=== PATIENT | female | born 1975 | race Two or more races ===

== ENCOUNTER 2021-07-24 16:42 | Emergency (ER) | payer SELFPAY ==
[2021-07-24 17:30] VITALS: BP 137/52; PULSE 106; RESP 18; TEMP 36.7; O2SAT 99; BMI 32.0
--- NOTE | 2021-07-24 18:13 | ED_ITS ---
HPI - URI/Sore Throat General Chief Complaint: Upper Respiratory Symptoms Stated Complaint: ? sinus infection Time Seen by Provider: 07/24/21 17:55 Source: patient Mode of arrival: ambulatory Limitations: no limitations History of Present Illness HPI Narrative: This is a 46-year-old female no significant medical history presenting to the emergency department with headache, facial pressure/discomfort, malaise and fatigue x3 weeks. Patient tells me that the facial pressure so uncomfortable and causing her headache. She tells me she feels like this is her typical headache however this was not going away. She tells me that sometimes it goes away however when she becomes congested again the headache comes back. She has been using Afrin multiple times per day. She tells me this seems to help initially but then it appears to not make a difference. She denies shortness of breath, nausea, vomiting, chest pain, fevers, chills, leg swelling, dizziness, vision changes. MD elicited complaint: sinus pain Onset (ago): week(s) (3) Consistency: constant Severity: severe Able to tolerate fluids by mouth: Yes Exacerbating factors: nothing Relieving factors: nothing Associated symptoms: denies other symptoms Treatments prior to arrival: none Related Data Previous Rx's Medication Instructions Recorded amoxicillin 875 mg-potassium 1 tab PO BID 10 Days #20 tab 07/24/21 clavulanate 125 mg tablet prednisone 20 mg tablet 40 mg PO DAILY 5 Days #10 tab 07/24/21 Allergies Allergy/AdvReac Type Severity Reaction Status Date / Time No Known Allergies Allergy Unverified 07/24/21 17:30 Review of Systems Review of Systems: Constitutional : No Weight loss, No Fever, No Chills, No Fatigue, No Malaise ENT/Mouth : No sore throat, No Rhinorrhea, + sinus pressure Eyes: No Eye Pain, No Swelling, No Redness Cardiovascular : No Chest Pain, No SOB, No Dyspnea on Exertion, No Orthopnea, No Edema, No Palpitations Respiratory : No Cough, No Sputum, No Wheezing Gastrointestinal : No Nausea, No Vomiting, No Diarrhea, No Constipation, No abdominal Pain, No Hematochezia, No Melena Genitourinary : No Dysuria, No Urinary Frequency, No Hematuria, Musculoskeletal : No joint pain, No Myalgias, No Joint Swelling Skin : No Skin Lesions, No rash Neuro : No Weakness, No Numbness, No Dizziness, + Headache Psych : No Anxiety/Panic, No Depression All other systems reviewed and are negative Yes all other systems are reviewed and are negative [facility] Past Medical History Attestation statement: The following information was validated with the patient. Source: old records reviewed and nursing notes reviewed Medical History No known health problems Physical Exam Vital Signs: Vital Signs: Last Vital Signs Temp 98.0 F 07/24/21 17:30 Pulse 106 H 07/24/21 17:30 Resp 18 07/24/21 17:30 BP 137/52 L 07/24/21 17:30 Pulse Ox 99 07/24/21 17:30 BMI result Body Mass Index 32.0 VSS Appearance: Alert.? Oriented X3.? No acute distress.? Head: Normocephalic, atraumatic, no step-offs or deformities + discomfort with forward bending and percussion/palpation of frontal sinuses. Eyes: Pupils equal, round and reactive to light.? ENT: Pharynx normal.? Neck: Normal inspection.? Neck supple.? CVS: Normal heart rate and rhythm.? Pulses normal.? Respiratory: No respiratory distress.? Breath sounds normal.? Abdomen: Soft and nontender.? Skin: Skin warm and dry.? Normal skin color.? Normal skin turgor.? Extremities: No lower extremity edema.? No calf ttp, negative Sol bilaterally 5/5 strength to bilateral upper and lower extremities Back: No midline tenderness, no C-spine tenderness, full range of motion, no CVA tenderness bilaterally Neuro: Oriented X 3.? No motor deficit.? No sensory deficit. CN 2-12 intact Course Reevaluation(s) Reevaluation #1: At this time patient has been educated on antibiotic use. She will be discharged home with PCP follow-up. Advised her to return with new or worsening symptoms Time: 18:25 MDM - URI/Sore Throat [facility] Narrative Medical decision making narrative: 1813 46 yo f presents w/ sinus like symptoms X3 weeks. PE- discomfort with forward bending, discomfort with percussion/palpation of facial sinuses. History and physical examination consistent with sinusitis. Unlikely that this is a PE, pneumonia, bronchitis. Patient denies head trauma, she says this feels like her typical headache on likely ICH. She also denies trauma to head. At this time is to discharge patient home on antibiotics. Medical Records Attestation: I reviewed the patient's medical records. Lab Data Attestation: I reviewed the patient's lab results. Critical Care Time Critical Care Time Critical Care Time: No Discharge Plan Discharge Clinical Impression: Sinusitis Patient Disposition: Home, Self-Care Additional Instructions: Take your medications as prescribed. If you were prescribed antibiotics today, it is important that you take your medication to their entirety, do not skip any doses, do not finish them early. Follow-up with your primary care provider this week. Return to the emergency department with new or worsening symptoms. Such as fevers, chills, chest pain, shortness of breath, nausea, vomiting, dizziness, headache, vision changes, lethargy In case of emergency call 911 Prescriptions: New amoxicillin-pot clavulanate 875-125 mg tablet 1 tab PO BID 10 Days Qty: 20 0RF prednisone 20 mg tablet 40 mg PO DAILY 5 Days Qty: 10 0RF Referrals: [facility] [Primary Care Provider] - 2 days Stand Alone Forms: Work/School Release
[2021-07-24 19:03] VITALS: BP 132/70; PULSE 85; RESP 18; O2SAT 99
[2021-07-24] MEDS: Ketorolac Tromethamine 30 MG/ML VIAL IM (19:05)
== END 2021-07-24 19:12 | disposition home or self-care (01) ==
PROVIDERS: Emergency Provider Emergency Medicine Emergency Medical Services
DX: J32.9 Chronic sinusitis, unspecified (principal)
CPT/HCPCS: 96372; 99284; J1885

== ENCOUNTER 2021-08-07 12:45 | Emergency (ER) | payer MEDICAID, SELFPAY ==
[2021-08-07 13:19] VITALS: BP 180/98; PULSE 95; RESP 18; TEMP 37; O2SAT 100; BMI 32.9
--- NOTE | 2021-08-07 13:50 | ED_ITS ---
HPI - General Adult General Chief complaint: General Medical Stated complaint: Sinus Infection Time Seen by Provider: 08/07/21 13:42 Source: patient Mode of arrival: ambulatory Limitations: no limitations History of Present Illness HPI narrative: 46-year-old female here with reports of persistent sinus pressure and pain with nasal congestion despite completing a course of Augmentin and prednisone that was prescribed on July 24. Patient denies any fevers, chills, cough, sore throat, vomiting, diarrhea, difficulty breathing or chest pain. Related Data Previous Rx's Medication Instructions Recorded amoxicillin 875 mg-potassium 1 tab PO BID 10 Days #20 tab 07/24/21 clavulanate 125 mg tablet prednisone 20 mg tablet 40 mg PO DAILY 5 Days #10 tab 07/24/21 cetirizine 10 mg tablet 10 mg PO DAILY PRN #30 tab 08/07/21 fluticasone propionate 50 2 spray INTRANASAL DAILY #16 g 08/07/21 mcg/actuation nasal spray,suspension (Flonase Allergy Relief) levofloxacin 500 mg tablet 500 mg PO DAILY 5 Days #5 tab 08/07/21 Allergies Allergy/AdvReac Type Severity Reaction Status Date / Time No Known Allergies Allergy Unverified 07/24/21 17:30 Review of Systems Review of Systems: Yes all other systems are reviewed and are negative Constitutional: Constitutional: Reports no additional constitutional complaints, Denies body ache(s), Denies chills, Denies fever(s), Denies headache(s) and Denies weakness Eyes: Eyes: Reports no additional eye complaints and Denies change in vision ENT: Reports system reviewed and no additional complaints, except as documented, Denies dizziness, Denies headache(s), Reports nasal congestion, Denies nasal discharge, Denies neck pain, Reports sinus pain and Reports sinus pressure Cardiovascular: Cardiovascular: Reports no additional cardiovascular complaints, Denies chest pain, Denies leg edema and Denies dyspnea Respiratory: Respiratory: Reports no additional respiratory complaints, Denies cough and Denies dyspnea Gastrointestinal: Gastrointestinal: Reports no additional gastrointestinal complaints, Denies abdominal pain, Denies diarrhea, Denies nausea and Denies vomiting Genitourinary: Genitourinary: Reports no additional female genitourinary complaints and Denies urinary incontinence Musculoskeletal: Musculoskeletal: Reports no additional musculoskeletal complaints, Denies back pain, Denies arthralgias, Denies joint swelling, Denies neck pain, Denies numbness and Denies tingling Integumentary/Breasts: Skin/Breast: Reports system reviewed and no additional complaints, except as docu and Denies rash Neurologic: Reports system reviewed and no additional complaints, except as documented, Denies dizziness, Denies headache(s), Denies numbness, Denies tingling and Denies weakness PMFSH Past Medical History Attestation statement: The following information was validated with the patient. Source: old records reviewed and nursing notes reviewed Medical History No known health problems Social History Social History Advance Directives: No Advance Directives Information Provided: Yes Physical Exam ED Vital Signs: Vital Signs - 24 hr 08/07/21 13:19 08/07/21 15:00 Temperature 98.6 F Pulse Rate 95 89 Respiratory Rate 18 19 Blood Pressure 180/98 H 156/74 H Pulse Oximetry 100 97 BMI result Body Mass Index 32.9 Const General: cooperative, healthy appearing, comfortable and no acute distress Orientation/consciousness: patient oriented x3 Limitations: no limitations HENMT Head: Yes normal to inspection Ears: hearing grossly normal bilaterally and TM abnormal bulging General nose exam: Normal external nose present and Abnormal mucous membranes and turbinates present erythematous Face and sinus: Yes normal facial exam and Yes sinus tenderness (Maxillar/frontal TTP) Mouth: Normal oral and palatal mucosa present Teeth and gingiva: dentition normal Throat: Yes posterior oropharynx normal, Yes tonsils normal and Yes uvula midline Eyes General: appearance normal, both eyes and all related structures Pupils: Equal, round and reactive pupils present Neck Neck: Yes normal visual inspection, Yes full ROM, Yes no lymphadenopathy and Yes no meningeal signs Chest Chest palpation & inspection: normal inspection of the chest Resp Effort & Inspection: normal respiratory effort Auscultation: clear to auscultation bilaterally Cardio Rate: regular rate Rhythm: regular rhythm Peripheral pulses: Peripheral pulses 2+ throughout GI Inspection: Yes normal to inspection Palpation (GI): Soft to palpation and nontender General: Yes no CVA tenderness Back/Spine/Pelvis Back: no CVA tenderness Thoracic/Lumbar Spine: thoracic and lumbar spine normal to inspection Skin General skin exam: no rashes or lesions noted Neuro General: patient oriented x3, gait normal, moves all extremities and no meningeal signs Cranial nerves: Yes CN's II-XII intact bilaterally and Yes Equal, round and reactive pupils present Extrem General: Yes normal to inspection, Yes no pedal edema and Yes no calf tenderness Course Course Course Narrative: 46-year-old female here with persistent sinus pressure, sinus pain and nasal congestion even after completing a dose of Augmentin and prednisone. Exam is consistent with sinusitis. Will repeat course of antibiotics, add nasal spray and decongestant. Send flu testing. Deferred covid testing 1510 flu testing is negative. Will treat for sinusitis. Reviewed worrisome signs and symptoms of when to return to the emergency department. Comfortable discharge home. Medical Decision Making Medical Records Medical records reviewed: Yes I reviewed the patient's medical records. Lab Data Lab results reviewed: Yes I reviewed the patient's lab results. Labs: Lab Results 08/07/21 Range/Units 14:30 Influenza Type A (BEATRIZ) Negative (Negative) Influenza Type B (BEATRIZ) Negative (Negative) Influenza A & B Note See Note Discharge Plan Discharge Clinical Impression: Sinusitis Patient Disposition: Home, Self-Care Instructions: Sinusitis (ED) Additional Instructions: covid testing negative keep appt for tomorrow with PCP Prescriptions: New fluticasone propionate [Flonase Allergy Relief] 50 mcg/actuation spray,suspension 2 spray intranasal DAILY Qty: 16 0RF Rx Instructions: administer into each nostril cetirizine 10 mg tablet 10 mg PO DAILY PRN (Reason: allergy symptoms) Qty: 30 0RF levofloxacin 500 mg tablet 500 mg PO DAILY 5 Days Qty: 5 0RF No Action amoxicillin-pot clavulanate 875-125 mg tablet 1 tab PO BID 10 Days Qty: 20 0RF prednisone 20 mg tablet 40 mg PO DAILY 5 Days Qty: 10 0RF Referrals: [facility] [Primary Care Provider] - 5 days Stand Alone Forms: Work/School Release Interventions: ED Discharge Assessment Last Done: 08/07/21 15:01 Discharge Date/Time: 08/07/21 15:03
[2021-08-07 14:50] LABS: Influenza A Negative (Negative); Influenza B2 Negative (Negative)
[2021-08-07 15:00] VITALS: BP 156/74; PULSE 89; RESP 19; O2SAT 97
== END 2021-08-07 15:03 | disposition home or self-care (01) ==
PROVIDERS: Nurse Practitioner Family; Emergency Provider Emergency Medicine
DX: J32.9 Chronic sinusitis, unspecified (principal)
CPT/HCPCS: 87502; 99283; 99284

== ENCOUNTER 2021-11-24 12:33 | Outpatient (REF) | payer MEDICAID, SELFPAY ==
--- NOTE | ~2021-11-24 | MM_ITS ---
EXAMINATION: MM SCREENING DIGITAL BREAST TOMOSYNTHESIS, BILATERAL CLINICAL INFORMATION: Screening. Asymptomatic. No prior breast imaging. Age 46. No known family history breast cancer. The lifetime risk of breast cancer based on the Tyrer-Cuzick Model is 7%. COMPARISON: None (current study represents initial baseline exam). TECHNIQUE: Digital breast tomosynthesis is performed in both the craniocaudal and mediolateral oblique views along with computer-aided detection (CAD). Synthesized 2D images are generated from the tomosynthesis. FINDINGS: There are scattered areas of fibroglandular density (ACR BI-RADS breast composition Category b). Left MLO view has asymmetric density mid upper quadrant with subtle nodularity mid outer breast on CC view. As this represents initial baseline, patient will be recalled to further characterize. The right breast shows no significant mass. There is no architectural abnormality or abnormal calcifications. The axillary nodes show expected fatty alba. The skin contours are smooth. MM/MM tomosynthesis screening BI IMPRESSION: Left: -Parenchymal asymmetry mid upper outer quadrant. Right: -No mammographic evidence of malignancy. ASSESSMENT: BI-RADS 0: Incomplete - Need Additional Imaging Evaluation RECOMMENDATION: 1. Additional views of the left breast (spot CC, spot ML). 2. Targeted ultrasound if warranted after review of the additional views. 3. Radiology department staff will contact the patient for additional imaging. This patient's information was entered into a reminder system with a target due date for their next mammogram.
== END 2021-11-24 12:34 | disposition home or self-care (01) ==
LOC: HO.MAMMO 12:33
PROVIDERS: PCP Internal Medicine; Visit Provider Internal Medicine
DX: Z12.31 Encounter for screening mammogram for malignant neoplasm of breast (principal)
CPT/HCPCS: 77063; 77067

== ENCOUNTER 2021-12-10 14:38 | Outpatient (REF) | payer MEDICAID, SELFPAY ==
--- NOTE | ~2021-12-10 | MM_ITS ---
EXAMINATION: MM DIAGNOSTIC DIGITAL BREAST TOMOSYNTHESIS, LEFT US TARGETED BREAST, LEFT CLINICAL INFORMATION: Asymmetric density upper outer quadrant left breast. COMPARISON: Mammography: 11/24/2021. TECHNIQUE: Digital breast tomosynthesis is performed. 2D images are generated from the tomosynthesis. The following views are obtained: Spot compression craniocaudal and 90 degree mediolateral views of the left breast. Targeted left breast ultrasound. FINDINGS: There are scattered areas of fibroglandular density (ACR BI-RADS breast composition Category b). The spot compression views of face of the irregular region of density with underlying 7 mm well circumscribed density approximately 8 cm from the nipple. ULTRASOUND: Targeted left breast ultrasound demonstrated 2 adjacent cysts at the 2 o'clock position, approximately 8 cm from the nipple. Both have distal sound enhancement and no distal sound shadowing and are wider than they are tall without internal vascularity. The larger one measures approximately 6 x 5 mm in size with the small one measuring approximately 5 x 2 mm in size. Results are discussed with the patient at time of visit. MM/MM tomosynthesis added views L IMPRESSION: No mammographic evidence of malignancy. ASSESSMENT: BI-RADS 2: Benign. RECOMMENDATION: Routine annual mammography screening. This patient's information was entered into a reminder system with a target due date for their next mammogram.
--- NOTE | ~2021-12-10 | US_ITS ---
EXAMINATION: MM DIAGNOSTIC DIGITAL BREAST TOMOSYNTHESIS, LEFT US TARGETED BREAST, LEFT CLINICAL INFORMATION: Asymmetric density upper outer quadrant left breast. COMPARISON: Mammography: 11/24/2021. TECHNIQUE: Digital breast tomosynthesis is performed. 2D images are generated from the tomosynthesis. The following views are obtained: Spot compression craniocaudal and 90 degree mediolateral views of the left breast. Targeted left breast ultrasound. FINDINGS: There are scattered areas of fibroglandular density (ACR BI-RADS breast composition Category b). The spot compression views of face the irregular region of density with underlying 7 mm well circumscribed density proximally 8 cm from the nipple. ULTRASOUND: Targeted left breast ultrasound demonstrated 2 adjacent cysts at the 2 o'clock position, approximately 8 cm from the nipple. Both have distal sound enhancement and no distal sound shadowing and are wider than they are tall without internal vascularity. The larger one measures approximately 6 x 5 mm in size with the small one measuring approximately 5 x 2 mm in size. Results are discussed with the patient at time of visit. US/US breast LT limited IMPRESSION: No mammographic evidence of malignancy. ASSESSMENT: BI-RADS 2: Benign. RECOMMENDATION: Routine annual mammography screening. This patient's information was entered into a reminder system with a target due date for their next mammogram.
== END 2021-12-10 14:39 | disposition home or self-care (01) ==
LOC: HO.MAMMO 14:38
PROVIDERS: PCP Internal Medicine; Visit Provider Internal Medicine
DX: R92.2 Inconclusive mammogram (principal)
CPT/HCPCS: 76642; 77061; 77065

== ENCOUNTER 2022-12-10 18:19 | Outpatient (REF) | payer MEDICAID, SELFPAY | END 2022-12-10 18:20 | disposition home or self-care (01) | LOC: HO.HHCLNP 18:19 | PROVIDERS: Visit Provider Family Medicine | DX: N39.0 Urinary tract infection, site not specified (principal) | CPT/HCPCS: 87086 ==

== ENCOUNTER 2023-01-21 09:09 | Outpatient (REF) | payer MEDICAID, SELFPAY ==
[2023-01-21 11:39] LABS: Cholesterol 185 mg/dL (<200); HDL Cholesterol 54 mg/dL (>40); LDL Cholesterol Calculated 107 mg/dL (<100); Triglycerides 121 mg/dL (<150)
[2023-01-21 11:50] LABS: Anion Gap 11 (12-20); Blood Urea Nitrogen 13 mg/dL (9-16); Calcium 9.6 mg/dL (8.4-10.2); Carbon Dioxide 26 mmol/L (22-29); Chloride 108 mmol/L (96-108); Estimated Glomerular Filt Rate > 60; Glucose Random 91 mg/dL (60-115); Potassium 3.7 mmol/L (3.3-5.1); Sodium 141 mmol/L (135-145)
[2023-01-21 11:57] LABS: Reflex LDLD? No
[2023-01-21 12:06] LABS: TSH reflex Free T4 0.26 uIU/mL (0.32-4.0); Vitamin D 25-OH Total 13.7 ng/mL (>30)
[2023-01-21 13:48] LABS: Free T4 (Free Thyroxine) 0.96 ng/dL (0.71-1.85)
== END 2023-01-21 09:10 | disposition home or self-care (01) ==
LOC: HO.HHCL 09:09
PROVIDERS: Visit Provider Internal Medicine
DX: R03.0 Elevated blood-pressure reading, without diagnosis of hypertension (principal)
CPT/HCPCS: 36415; 80048; 80061; 82306; 84439; 84443

== ENCOUNTER 2024-09-21 08:48 | Emergency (ER) | payer OTHER, SELFPAY ==
--- NOTE | ~2024-09-21 | XR_ITS ---
EXAMINATION: XR HAND 1-2 VIEWS LEFT HISTORY: thumb swelling post injury COMPARISON: There are no prior studies available for comparison. FINDINGS: Three views of the left hand are submitted. Osseous mineralization is normal. Tiny osseous density seen adjacent to the interphalangeal joint of the thumb which could represent a fracture fragment, of indeterminate age. The bones are otherwise intact. The joint spaces are preserved. The soft tissues are unremarkable. XR/XR hand LT 2V IMPRESSION: Tiny osseous density adjacent to the interphalangeal joint of the thumb which could represent a fracture fragment of indeterminate age. Clinical correlation is recommended. Electronically signed by: Drake Faulkner MD 09/21/2024 09:35 AM EDT
[2024-09-21 08:56] VITALS: BP 151/90; PULSE 82; RESP 18; TEMP 36.7; O2SAT 99; BMI 35.6
--- NOTE | 2024-09-21 09:06 | PC.NURSE ---
patient has injury to left thumb, states she oinched it in door x1week ago, becoming more painful and swollen. patient thumb noted to have missing part of nail, with swelling and bruising.
--- OUTSIDE RECORDS SUMMARY | 2024-09-21 09:58 | XMS_ITS | Encounter Summary ---
Author Organization [employer] Address [address] [facility] [address] [place] [address] Care Team Providers Care Broach Setter Name Role Phone Lea Urbina MD Primary Care Provider + Encounter Details Date Type Department Care Team (Late st Contact Info) Description 04/07/2022 Abstract [facility] MEDICINE [address] [place] [address] ProviderAdrian MD Social History Tobacco Use Types Packs/Day Years Used Date Smoking Tobacco: Never Assessed Comments Unknown Sex and Gender Information Value Date Recorded Sex Assigned at Female 03/16/2022 10:15 AM EDT Legal Sex Female 10:15 AM EDT Gender Identity Female 03/16/2022 10:15 AM EDT Sexual Orientation Choose not to disclose 2021 10:15 AM EDT documented as of this encounter Plan of Treatment Not on file documented as of this encounter Procedures Procedure Name Priority Date/Time Associated Diagnosis Comments MAMMOGRAPHY Routine 12/09/2021 MAMMOGRAPHY Routine 11/24/2021 PAP/HPV Routine 10/30/2021 documented in this encounter Results * Mammography (12/09/2021) Mammogram Performed Anatomical Region Laterality Modality Other Historical Provider HEALTH MAINTENANCE Final Result * (ABNORMAL) Mammography (11/24/2021) Mammogram Performed Anatomical Region Laterality Modality Other Historical Provider HEALTH MAINTENANCE Edited Result - Final * Pap Smear (10/30/2021) Pap smear Performed us Historical Provider HEALTH MAINTENANCE Final Result documented in this encounter Visit Diagnoses Not on filedocumented in this encounter Care Teams Broach Setter Relationship Specialty Start Date End Date Lea Urbina MD [address] [place] [phone] PCP - General Family Medicine 11/30/18 documented as of this encounter
--- OUTSIDE RECORDS SUMMARY | 2024-09-21 09:58 | XMS_ITS | Encounter Summary ---
Author Organization [employer] Address [address] [facility] [address] [place] [address] Care Team Providers Care Stud Driver Name Role Phone Lea Urbina MD Primary Care Provider + Encounter Details Date Type Department Care Team (Late st Contact Info) Description 04/06/2022 Orders Only [facility] MEDICINE [address] [place], [place] [phone] Lea Urbina MD [address] [place], [place] [phone] Social History Tobacco Use Types Packs/Day Years [...] Procedure Name Priority Date/Time Associated Diagnosis Comments T4, FREE Routine 01/21/2023 9:15 AM EDT CULTURE, URINE, ROUTINE Routine 12/10/2022 12:00 AM EDT documented in this encounter Results * T4, Free (01/21/2023 9:15 AM EDT) Free T4 (Free Thyroxine) 0.96 0.71 - 1.85 ng/dL [facility] 01/21/2023 9:1 5 AM EDT 01/21/2023 11:11 AM EDT us Lea Urbina MD LAB BLOOD ORDERABLES Fin al Result Performing Organization Address [facility] Co de Phone Number [facility] [address] [place] [phone] * Culture, Urine, Routine (12/10/2022 12:00 AM EDT) Urine specimen obtained by clean catch procedure / Unknown 12/10/2022 12/10/2022 Comment:[facility]ACC Narrative [facility] - 12/12/2022 8:59 AM EDT Urine Culture Report Result Urine Culture 50,000 to 100,000 cfu/ml Urine Culture Mixed bacterial reg characteristic of Urine Culture urogenital contamination. Specimen Source: Urine clean catch us Imelda De Guzman DO LAB MICROBIOLOGY - GENERAL O RDERABLES Final Result Performing Organization Address [facility] Co de Phone Number [facility] [address] [place] [phone] documented in this encounter Visit Diagnoses Not on filedocumented in this encounter Care Teams Stud Driver Relationship Specialty Start Date End Date Lea Urbina MD [address] [place] [phone] PCP - General Family Medicine 11/30/18 documented as of this encounter
--- OUTSIDE RECORDS SUMMARY | 2024-09-21 09:58 | XMS_ITS | Encounter Summary ---
Author Organization [employer] Address [address] [facility] [address] [place] [address] Care Team Providers Care Campground Attendant Name Role Phone Lea Urbina MD Primary Care Provider + Encounter Details Date Type Department Care Team (Late st Contact Info) Description 02/16/2023 Abstract [facility] MEDICINE [address] [place], [place] [phone] Lea Urbina MD [address] [place], [place] [phone] Social History Tobacco Use Types Packs/Day Years Used Date Smoking Tobacco: Never Smokeless Tobacco: Never Alcohol Use Standard Drinks/Week Comments Never 0 (1 standard drink = 0.6 oz pur e alcohol) Depression Answer Date Recorded Patient Health Questionnaire-2 Score 0 11/19/2022 Comments Unknown Sex and Gender Information Value Date Recorded Sex Assigned at Female 03/16/2022 10:15 AM EDT Legal Sex Female 10:15 AM EDT Gender Identity Female 03/16/2022 10:15 AM EDT Sexual Orientation Choose not to disclose 2021 10:15 AM EDT documented as of this encounter Plan of Treatment Not on file documented as of this encounter Visit Diagnoses Not on filedocumented in this encounter Care Teams Campground Attendant Relationship Specialty Start Date End Date Lea Urbina MD [address] [place], [place] [phone] PCP - General Family Medicine 11/30/18 documented as of this encounter
--- OUTSIDE RECORDS SUMMARY | 2024-09-21 09:58 | XMS_ITS | Encounter Summary ---
Author Organization [email or web address] Address [address] [facility] 7t [place] [address] Care Team Providers Care Grooving Machine Operator Name Role Phone Lea Urbina MD Primary Care Provider + Encounter Details Date Type Department Care Team (Late st Contact Info) Description 09/21/2024 Orders Only [facility] External Provider, [facility] Social History Tobacco Use Types Packs/Day Years Used Date Smoking Tobacco: Never Smokeless Tobacco: Never Alcohol Use Standard Drinks/Week Comments Never 0 (1 standard drink = 0.6 oz pur e alcohol) Housing Stability Answer Date Recorded What is your housing situation today? I have garthsonu smith 03/01/[address] you li ve. Do you have problems with any of the following? None of the above 03/01/2023 Food Insecurity Answer Date Recorded Within the past 12 months, y ou worried that your food would run out before you got money to buy more: Never True 03/01/2023 Within the past 12 months,th e food you bought just didn't last and you didn't have enough money to get more: Never True Transportation Answer Date Recorded In the past 12 months, has l ack of transportation kept you from medical appts, meetings, work or from getting things needed for daily living? No 03/01/2023 Utilities Answer Date Recorded In the past 12 months, has t he electric, gas, oil or water company threatened to shut off services in your home? No 03/01/2023 Depression Answer Date Recorded Patient Health Questionnaire-2 [...] Procedure Name Priority Date/Time Associated Diagnosis Comments XR HAND 1-2 VIEWS LEFT Routine 09/21/2024 9:20 AM EDT documented in this encounter Results * XR Hand 1-2 Views Left (09/21/2024 9:20 AM EDT) Anatomical Region Laterality Modality Upper Extremities, Hand Left Radiogra phic Imaging 09/21/2024 9:20 AM EDT Narrative 09/21/2024 9:37 AM EDT ? [facility] ?[address] ?[place] [address] ?XRay Report ? Signed ? Patient: Dat,Glenys ?MR#: [id number] ?? 40 ? : 1975 ?Acct:[id number] ? Age/Sex: 49 / F ?ADM Date: 09/21/24 ? Loc: HO.ED ? Attending Dr: ? Ordering Physician: Arturo Salinas MD ?? Date of Service: 09/21/24 ?? Procedure(s): XR hand LT 2V ?? Accession Number(s): [id number] ? cc: Lea Urbina MD; Arturo Salinas MD ? EXAMINATION: ??XR HAND 1-2 VIEWS LEFT ? HISTORY: thumb swelling post injury ? COMPARISON: There are no prior studies available for comparison. ? FINDINGS: ? Three views of the left hand are submitted. ??Osseous mineralization is ?? normal. ??Tiny osseous density seen adjacent to the interphalangeal ?? joint of the thumb which could represent a fracture fragment, of ?? indeterminate age. The bones are otherwise intact. ??The joint spaces ?? are preserved. ??The soft tissues are unremarkable. ? XR/XR hand LT 2V ?? IMPRESSION: ? Tiny osseous density adjacent to the interphalangeal joint of the thumb ?? which could represent a fracture fragment of indeterminate age. ?? Clinical correlation is recommended. ? Electronically signed by: ??Drake Faulkner MD ??09/21/2024 09:35 AM EDT ? Dictated By: ?Drake Faulkner MD ? Signed By: ?<Electronically signed by Drake Faulkner MD in OV> ?09/21/24934 ? DD/ 0920 ? TD/TT: 09/21/24924 ? Machinist 2Nd Shift: ? Procedure Note Donotuseinterpreter, Image - 09/21/[address] [address] XRay Report Signed Patient: Malcom Daugherty#: [id number] 40 : 1975Acct:[id number] Age/Sex: 49 / FADM Date: 09/21/24 Loc: HO.ED Attending Dr: Ordering Physician: Arturo Salinas MD Date of Service: 09/21/24 Procedure(s): XR hand LT 2V Accession Number(s): [id number] cc: Lea Urbina MD; Arturo Salinas MD EXAMINATION: XR HAND 1-2 VIEWS LEFT HISTORY: thumb swelling post injury COMPARISON: There are no prior studies available for comparison. FINDINGS: Three views of the left hand are submitted. Osseous mineralization is normal. Tiny osseous density seen adjacent to the interphalangeal joint of the thumb which could represent a fracture fragment, of indeterminate age. The bones are otherwise intact. The joint spaces are preserved. The soft tissues are unremarkable. XR/XR hand LT 2V IMPRESSION: Tiny osseous density adjacent to the interphalangeal joint of the thumb which could represent a fracture fragment of indeterminate age. Clinical correlation is recommended. Electronically signed by: Drake Faulkner MD 09/21/2024 09:35 AM EDT Dictated By: Drake Faulkner MD Signed By: <Electronically signed by Drake Faulkner MD in OV> 09/21/24934 DD/ 9 TD/TT: 09/21/24924 Machinist 2Nd Shift: [facility] External Provider IMG XR PROCEDURES Edited Result - Final documented in this encounter Visit Diagnoses Not on filedocumented in this encounter Care Teams Grooving Machine Operator Relationship Specialty Start Date End Date Lea Urbina MD [address] [place] [id number] PCP - General Family Medicine 11/30/18 documented as of this encounter
--- OUTSIDE RECORDS SUMMARY | 2024-09-21 09:58 | XMS_ITS | Clinical Summary ---
Author Organization [employer] Address [address] [facility] 7t [place] [address] Care Team Providers Care Forest Fire Fighter Name Role Phone Lea Urbina MD Primary Care Provider + Allergies No known active allergies Medications ergocalciferol (Vitamin D-2) 1.25 MG (52715 UT) capsule Take 1 capsule by mouth. Every week 2 Active Diclofenac Sodium 1 % gelIndications:Ri ght foot pain APPLY 2 GRAMS TO AFFECTED AREA 3 TIMES A DAY 100 g 1 3 Active Blood Pressure Monitor kit Use as directed 3x/week 1 kit 3 Active traZODone (Desyrel) 50 MG tablet TAKE 1/2 - 1 TAB BY MOUTH AT BEDTIME DAILY 30 tablet 1 4 Active losartan (Cozaar) 50 MG tabletIndications :Elevated blood-pressure reading without diagnosis of hypertension Take 1 tablet (50 mg) by mouth in the morning. 90 tablet 3 4 Active fluticasone (Flonase) 50 MCG/ACT nasal sprayIndications: Chronic maxillary sinusitis SPRAY 2 SPRAYS INTO EACH NOSTRIL IN THE MORNING 48 mL 4 Active Active Problems Problem Noted Date Diagnosed Date Primary hypertension 05/27/2023 Assessment & Plan (08/09/2023 10:32 AM EDT): - BP not at goal yet. - Tolerates Losartan well. - Increase Losartan to 50 mg daily and follow up in 2 months. Counseled re low salt diet/increase moderate physical activity. Check home BP BIW and prn CP/BROWN/FOWLER Non smoking patient. Assessment & Plan (05/27/2023 12:38 PM EST): See above, new onset Tendinitis, de Quervain's 02/02/2023 Assessment & Plan (08/09/2023 10:31 AM EDT): - Minimal improvement, still declining referral to OT. -Recommended to continue using hand brace, and to come to acupuncture clinic. -Advised to call prn for OT Assessment & Plan (05/27/2023 12:37 PM EST): Pt declined FU with OT Cont tylenol and diclofenac Prn + wearing wrist splint Recommended to come to acupuncture Assessment & Plan (02/02/2023 1:27 PM EDT): Prescribe a wrist/thumb splint Restriction to lift more than 10 lbs Refer to OT Trochanteric bursitis of both hips 02/02/2023 Assessment & Plan (08/09/2023 10:25 AM EDT): - Minimal improvement with exercising at home, still declines referral to Pt. - Advised to continue home exercises and to call prn for PT. - Continue Diclofenac gel + Tylenol prn. Assessment & Plan (05/27/2023 12:38 PM EST): Pt did not FU w PT Recommended wt reduction, tylenol, diclofenac prn Recommended to come to acupuncture Assessment & Plan (02/02/2023 1:28 PM EDT): Use tylenol or ibuprofen PRN Refer to PT Screening for colorectal cancer 01/07/2023 Pain, dental 11/19/2022 Assessment & Plan (11/19/2022 12:06 PM EDT): Counseled to make an appointment with dentist Information about dentists in the area given to patient. Rash in adult 05/19/2022 Assessment & Plan (05/19/2022 9:31 AM EST): Order Lotrisone cream, needs to be seen if She will call back prn for urgent visit if sxs do not improve within 1w Stress incontinence of urine 05/19/2022 Assessment & Plan (05/19/2022 9:29 AM EST): RO UTI, order UA and Cx. Will call her prn pos results Will mail info re Angel idas. FU prn Non-seasonal allergic rhinitis 05/19/2022 Assessment & Plan (05/19/2022 9:32 AM EST): Restart Zyrtec prn + Flonase nasal spray (or Nasacort if not covered by insurance) Acute pain of left knee 05/14/2022 Hip pain 05/14/2022 Foot pain 05/14/2022 Assessment & Plan (05/19/2022 9:30 AM EST): Most likely plantar fasciitis. Order plantar inserts Get Xrays done, to ro plantar spur Use diclofenac gel + warm soaks with epson salt FU prn Visual impairment 04/07/2022 Lateral epicondylitis of right elbow 04/06/2022 Perimenopause 04/06/2022 Assessment & Plan (11/19/2022 12:23 PM EDT): Reassurance about perimenopausal changes, Pap smear up to date. FU PRN. Primary insomnia 04/06/2022 Skin tag 04/06/2022 Resolved Problems Problem Noted Date Diagnosed Date Resolved Date Elevated blood-pressure read ing without diagnosis of hypertension 04/06/2022 08/09/2023 Assessment & Plan (05/27/2023 12:39 PM EST): Pt has essential HTN Will start losartan 25 mg Counseled re low salt diet/increase moderate physical activity. Check home BP BIW and prn CP/BROWN/FOWLER Non smoking patient. Fu w/ me next m Assessment & Plan (02/02/2023 1:30 PM EDT): Stage 1 hypertension, uncontrolled I discuss with pt medications vs non-pharmaceutical treatment. She prefers non- pharm treatment Counseled re low salt diet/increase moderate physical activity. Check home BP BIW and prn CP/BROWN/FOLWER Non smoking patient. FU with me 6 months Assessment & Plan (01/07/2023 11:49 AM EDT): Most likely essential HTN, needs to check BP at home Counseled re low salt diet/increase moderate physical activity. Check home BP BIW and prn CP/BROWN/FOWLER Non smoking patient. Order labs FU 3 weeks Assessment & Plan (11/19/2022 12:07 PM EDT): HTN today Counseled re low salt diet/increase moderate physical activity. Check home prn CP/BROWN/FOWLER Non smoking patient. Check BP at home TIW and FU with me in 6-7 weeks. Frontal sinusitis 04/06/2022 12/10/2022 Encounters Date Type Department Care Team Description 09/21/2024 Orders Only [facility] External Provider, [facility] 09/15/2024 Telephone [facility] [address] [place] [address] Fide Green OD from Last 3 Months Immunizations Name Administration Dates Next Due Influenza injectable quadriv alent preservative free 02/02/2023,03/19/2022 Influenza, IIV3, injectable 02/23/2014, 7 Influenza, Split (incl. darian fied surface antigen) 05/19/2012 MMR 05/26/1993 Pfizer Covid-19 Vaccine 12+ 03/20/2021,,08/31/2020 TD (adult), 2 Lf tetanus tox oid, preservative free, adsorbed 02/14/2007 Tdap 03/19/2022 Social History Tobacco Use Types Packs/Day Years Used Date Smoking Tobacco: Never Smokeless Tobacco: Never Tobacco Cessation:Counseling Given: Not Answered Alcohol Use Standard Drinks/Week Comments Never 0 (1 standard drink = 0.6 oz pur e alcohol) Housing Stability Answer Date Recorded What is your housing situation today? I have garth smith 03/01/[address] you [...] not to disclose 2021 10:15 AM EDT Last Filed Vital Signs Vital Sign Reading Time Taken Comments Blood Pressure 143/91 08/09/2023 10:07 AM EDT Pulse 91 08/09/2023 10:07 AM EDT Temperature 36.4 ??C (97.5 ??F) 08/09/2023 10:07 AM E DT Respiratory Rate 12 02/02/2023 11:52 AM EDT Oxygen Saturation 98% 08/09/2023 10:07 AM EDT Inhaled Oxygen Concentration - - Weight 89.4 kg (197 lb 2 oz) 08/09/2023 10:07 AM EDT Height 157.5 cm (5' 2 ) 08/09/2023 10:07 AM EDT Body Mass Index 36.05 08/09/2023 10:07 AM EDT Plan of Treatment Health Maintenance Due Date Last Done Comments CT Colonography 1975 Colonoscopy 1975 Colorectal Cancer Screening 1975 FIT DNA/Cologuard 1975 FIT 1975 FOBT 1975 HIV Screening 1975 Sigmoidoscopy 1975 Alcohol/Substance Use Screening 1986 Family Planning (PISQ) 1989 Hepatitis C Screening 02/13/1992 Hepatitis B Vaccines (1 of 3 - 19+ 3-dose series) 1993 Depression Screening 11/20/2023 11/19/2022, 11/20/19 SDOH Screening 11/20/2023 11/19/2022 Mammogram 12/11/2023 12/10/2021, 11/15, 11/24/2021, Additional history exists COVID-19 Vaccine ( season) 2024 03/19/2022, 03/20/2021, 09/21/2020, Additional history exists Influenza Vaccine (#1) 2024 , 03/19/2022, 02/23/2014, Additional history exists Pneumococcal Vaccine: 50+ Years (1 of 1 - PCV) 02/13/2024 Zoster Vaccines (1 of 2) 02/13/2024 Tobacco Screening 05/27/2024 05/27/2023 Cervical Cancer Screening 10/30/2026 HPV/Cotest 10/30/2026 10/30/2021 Pap Smear 10/30/2026 10/30/2021, 10/30/2021 Lipid Panel 01/22/2028 01/21/2023, 10/30/2021 DTaP/Tdap/Td Vaccines (2 - Td or Tdap) 03/19/2032 03/19/2022, 02/14/2007 RSV Patients and Patients Aged 60 years or older (1 - 1-dose 75+ series) 2049 HIB Vaccines Aged Out No longer eligi ble based on patient's age to complete this topic HPV Vaccines Aged Out No longer eligi ble based on patient's age to complete this topic Hepatitis A Vaccines Aged Out No long er eligible based on patient's age to complete this topic IPV Vaccines Aged Out No longer eligi ble based on patient's age to complete this topic Meningococcal Vaccine Aged Out No alex cornelio eligible based on patient's age to complete this topic RSV under 20 months Aged Out No longe r eligible based on patient's age to complete this topic Rotavirus Vaccines Aged Out No longer eligible based on patient's age to complete this topic Procedures Procedure Name Priority Date/Time Associated Diagnosis Comments XR HAND 1-2 VIEWS LEFT Routine 09/21/2024 9:20 AM EDT LIPID PANEL WITH REFLEX TO DIRECT LDL Routine 01/21/2023 9:15 AM EDT Elevated blood-pressure reading without diagnosis of hypertension MAMMOGRAM GENERIC Routine 12/10/2021 3:0 5 PM EDT THINPREP IMAGING PAP AND HPV MRNA E6/E7, WITH CT/NG, TRICHOMONAS Routine 10/30/2021 12:00 AM EDT HM PAP/HPV Routine 10/30/2021 from Last 3 Months or Most Recently Relevant to Health Maintenance Results * XR Hand 1-2 Views Left (09/21/2024 9:20 AM EDT) Anatomical Region Laterality Modality Upper Extremities, Hand Left Radiogra phic Imaging 09/21/2024 9:20 AM EDT Narrative 09/21/2024 9:37 AM EDT ? [facility] ?[address] ?[place] [address] ?XRay Report ? Signed ? Patient: Glenys Daugherty ?MR#: [id number] ?? 40 ? : 1975 ?Acct:[id number] ? Age/Sex: 49 / F ?ADM Date: 09/21/24 ? Loc: HO.ED ? Attending Dr: ? Ordering Physician: Arturo Salinas MD ?? Date of Service: 09/21/24 ?? Procedure(s): XR hand LT 2V ?? Accession Number(s): [id number] ? cc: Lea Urbina MD; Arturo Salinas [...] signed by Drake Faulkner MD in OV> ?09/21/24 0935 ? DD/ 9 ? TD/TT: 09/21/24924 ? Sensor Technician: ? Procedure Note Dariusz Leroy - 09/21/[address] [address] XRay Report Signed Patient: Glenys DaughertyMR#: [id number] 40 : 1975Acct:[id number] Age/Sex: 49 / FADM Date: 09/21/24 Loc: HO.ED Attending Dr: Ordering Physician: Arturo Salinas MD Date of Service: 09/21/24 Procedure(s): XR hand LT 2V Accession Number(s): [id number] cc: Lea Urbina MD; Arturo Salinas MD [...] signed by Drake Faulkner MD in OV> 09/21/2435 DD/ 9 TD/TT: 09/21/24924 Sensor Technician: [facility] External Provider IMG XR PROCEDURES Edited Result - Final * (ABNORMAL) Lipid Panel with Reflex to Direct LDL (01/21/2023 9:15 AM EDT) Triglycerides 121 <150 mg/dL [facility] Comment:Desirable Triglyceri de: less than 150 mg/dLBorderline High Triglyceride 150-199 mg/dLHigh Triglyceride: 200-499 mg/dLVery High Triglyceride: greater than or equal to 5OO mg/dL Cholesterol 185 <200 mg/dL [facility] Comment:Desirable Cholestero l: less than 200 mg/dLBorderline High Cholesterol: 200-239 mg/dLHigh Cholesterol: greater than 239 mg/dL LDL Cholesterol Calculated 107(H) <100 mg/dL [facility] Comment:Desirable LDL: less than 100 mg/dLNear Optimal/Above Optimal LDL: 110- 129 mg/dLBorderline High LDL: 130-159 mg/dLHigh LDL: 160-189 mg/dLVery High LDL: greater than or equal to 190 mg/dL HDL Cholesterol 54 >40 mg/dL [facility] Comment:Desirable HDL: great er than 40 mg/dL Note: This HDL assay may give artificially low results in patients with liver disease. Blood 01/21/2023 9:15 AM EDT 01/21/2023 11:11 AM EDT Lea Urbina MD LAB BLOOD ORDERABLES Fin al Result [facility] [address] [place] [address] [phone] * Mammography Report 1 (12/10/2021 3:05 PM EDT) Anatomical Region Laterality Modality Breast Bilateral Mammography 12/10/2021 3:05 PM EDT Narrative 12/11/2021 8:25 AM EDT Refer to the Notes tab for result details [facility] Procedure: Mammography Report 1 Procedure Note Provider, MD Adrian - 08/09/2022 Refer to the Notes tab for result details [facility] Procedure: Mammography Report 1 Lea Urbina MD IMG BI PROCEDURES Final Result * THINPREP TIS PAP AND HPV mRNA E6/E7, CT/NG, TRICH (10/30/2021 12:00 AM EDT) Chlamydia trachomatis RNA, TMA, Urogenital NOT DETECTED NOT DETECTED [facility] Clinical Information: None given [facility] COMMENT SEE COMMENT [facility] Comment: The analytical performance characteristics of this assay, when used to test SurePath(TM) specimens have been determined by [facility]. The modifications have not been cleared or approved by the FDA. This assay has been validated pursuant to the CLIA regulations and is used for clinical purposes. ?? For additional information, please refer to https://education.[employer]/faq/SYO389 (This link is being provided for information/ educational purposes only.) ?? COMMENT SEE COMMENT [facility] Comment: EXPLANATORY NOTE: ? The Pap is a screening test for cervical cancer. It is ?? not a diagnostic test and is subject to false negative ?? and false positive results. It is most reliable when a ?? satisfactory sample, regularly obtained, is submitted ?? with relevant clinical findings and history, and when ?? the Pap result is evaluated along with historic and ?? current clinical information. ?? COMMENT: This Pap test has been evaluated with computer assisted technology. [employer] Tire Beader Maker: SEE COMMENT [facility] Comment: DCR, CT(ASCP) CT screening location: [address] ??[address] HPV nRNA E6/E7 Not Detected Not Detected [employer] Comment: Methodology: [employer] Erector-Mediated Amplification This assay detects E6/E7 viral messenger RNA (mRNA) from 14 high-risk HPV types (16,18,31,33,35,39,45,51,52,56,58,59,66,68). ? Cervical sources are required for HPV testing. If a vaginal source from a patient who has had a total hysterectomy with removal of cervix was ?? submitted, please contact the testing laboratory for alternative testing options. ?? For additional information, please refer to http://[employer]Jam.[employer]/faq/ALW287f5 (This link if provided for information/ educational purposes only.) Interpretation/Re sult: Negative for intraepithelial lesion or malignancy. [facility] LMP: NONE GIVEN [facility] Neisseria gonorrhoeae RNA, TMA, Urogenital NOT DETECTED NOT DETECTED [facility] Prev. BX: NONE GIVEN [facility] Prev. PAP: NONE GIVEN [facility] SOURCE: None given [facility] Statement Of Adequacy: SEE COMMENT [facility] Comment: Satisfactory for evaluation. Endocervical/transformation zone component present. Age and/or menstrual status not provided Trichomonas vaginalis, QL, TMA, PAP Vial NOT DETECTED NOT DETECTED [facility] Comment: The analytical performance characteristics of this assay have been determined by [facility]. The modifications have not been cleared or approved by the FDA. This assay has been validated pursuant to the CLIA regulations and is used for clinical purposes. ?? For additional information, please refer to [email or web address].[employer]/ faq/Trichomonastma (This link is being provided for information/ educational purposes only.) ?? 10/30/2021 Lea Urbina MD LAB PATHOLOGY ORDERABLES Final Result [facility] [address] * Pap Smear (10/30/2021) Pap smear Performed Historical Provider HEALTH MAINTENANCE Final Result from Last 3 Months or Most Recently Relevant to Health Maintenance Insurance C3 HSN FULL HSN PARTIAL Care Teams Forest Fire Fighter Relationship Specialty Start Date End Date Lea Urbina MD [address] [place] [phone] PCP - General Family Medicine 11/30/18
--- OUTSIDE RECORDS SUMMARY | 2024-09-21 09:58 | XMS_ITS | Encounter Summary ---
Author Organization [employer] Address [address] [facility] 7t [place] [address] Care Team Providers Care Consultant Teacher Name Role Phone Lea Urbina MD Primary Care Provider + Reason for Visit * Reason Onset Date Comments Appointment Request 10/01/2022 Encounter Details Date Type Department Care Team ([facility] st Contact Info) Description 10/01/2022 Telephone [facility] [address] [place], [place] [phone] Lea Urbina MD [address] [place], [place] [phone] Appointment Request Social History Tobacco Use Types Packs/Day Years Used Date Smoking Tobacco: Never Smokeless Tobacco: Never Alcohol Use Standard Drinks/Week Comments Never 0 (1 standard drink = 0.6 oz pur e alcohol) Comments Unknown Sex and Gender Information Value Date Recorded Sex Assigned at Female 03/16/2022 10:15 AM EDT Legal Sex Female 10:15 AM EDT Gender Identity Female 03/16/2022 10:15 AM EDT Sexual Orientation Choose not to disclose 2021 10:15 AM EDT documented as of this encounter Miscellaneous Notes * Telephone Encounter - Justyna Wetzel - 10/01/2022 11:03 AM EDT Tc from patient requesting an appt with PCP, states she received a letter recently. Vamp Marker didn't see any notes or letters sent. documented in this encounter Plan of Treatment Not on file documented as of this encounter Visit Diagnoses Not on filedocumented in this encounter Care Teams Consultant Teacher Relationship Specialty Start Date End Date Lea Urbina MD [address] [place] [phone] PCP - General Family Medicine 11/30/18 documented as of this encounter
--- OUTSIDE RECORDS SUMMARY | 2024-09-21 09:58 | XMS_ITS | Encounter Summary ---
Author Organization [employer] Address [address] [facility] 7t [place] [address] Care Team Providers Care Optical Coating Technician Name Role Phone Lea Urbina MD Primary Care Provider + Reason for Visit * Reason Comments Med Refill Encounter Details Date Type Department Care Team (Late st Contact Info) Description 08/22/2023 Refill [facility] [address] [place], [place] [phone] Lea Urbina MD [address] [place], [place] [phone] Elevated blood-pressure reading without diagnosis of hypertension Social History Tobacco Use Types Packs/Day Years [...] documented as of this encounter Visit Diagnoses Diagnosis Elevated blood-pressure reading without diagnosis of hypertension Elevated blood pressure reading without diagnosis of hypertension documented in this encounter Care Teams Optical Coating Technician Relationship Specialty Start Date End Date Lea Urbina MD [address] [place] [phone] PCP - General Family Medicine 11/30/18 documented as of this encounter
--- NOTE | 2024-09-21 09:59 | ED_ITS ---
HPI - Extremity Problem General Chief complaint: Extremity Injury, Upper Stated complaint: Finger injury Time Seen by Provider: 09/21/24 09:24 Source: patient and RN notes reviewed Mode of arrival: ambulatory Limitations: no limitations History of Present Illness ED Provider: Aleyda Salinas PA-C HPI Narrative: This is a 49-year-old female, with a past medical history of hypertension, who presents emergency department with concerns for left thumb pain x1 week. Patient states that her left thumb was pinched in between a house door. she states that the area bled for several minutes.She states that she has had ongoing pain however states that over the last several days she has had increased pain and swelling. She has been applying hydrogen peroxide to the area which has provided her with some relief. Denies taking any other medications to treat her current symptoms. No fevers or chills. She does report slight drainage from the wound. She is right-hand dominant No other complaints or concerns at this time. MD Complaint: extremity pain and extremity swelling Onset (ago): week(s) Pain Consistency: constant Location: left and upper extremity Quality: burning and aching Radiation: none Relieving factors: immobilization Exacerbating factors: range of motion and palpation Associated symptoms: denies other symptoms Related Data Previous Rx's ?Medication ?Instructions ?Recorded amoxicillin 875 mg-potassium 1 tab PO BID 10 days #20 tabs 07/24/21 clavulanate 125 mg tablet prednisone 20 mg tablet 40 mg (2 x 20 mg) PO DAILY 5 days 07/24/21 #10 tabs cetirizine 10 mg tablet 10 mg PO DAILY PRN allergy 08/07/21 symptoms #30 tabs fluticasone propionate 50 2 spray intranasal DAILY #16 grams 08/07/21 mcg/actuation nasal spray,suspension (Flonase Allergy Relief) levofloxacin 500 mg tablet 500 mg PO DAILY 5 days #5 tabs 08/07/21 amoxicillin 875 mg-potassium 1 tab PO BID 7 days #14 tabs 09/21/24 clavulanate 125 mg tablet Allergies Allergy/AdvReac Type Severity Reaction Status Date / Time No Known Allergies Allergy Verified 09/21/24 09:01 Review of Systems 2 Review of Systems: Constitutional: No Weight loss, No Fever, No Chills, No Night Sweats, No Fatigue, No Malaise ENT/Mouth: No Hearing loss, No Ear Pain, No Nasal Congestion, No Sinus Pain, No Hoarseness, No sore throat, No Rhinorrhea, No Swallowing Difficulty Eyes: No Eye Pain, No Swelling, No Redness, No Foreign Body, No Discharge, No Vision Changes Cardiovascular: No Chest Pain, No SOB, No Dyspnea on Exertion, No Orthopnea, No Edema, No Palpitations Respiratory: No Cough, No Sputum, No Wheezing, No Smoke Exposure, No Dyspnea Gastrointestinal: No Nausea, No Vomiting, No Diarrhea, No Constipation, No Abdominal pain, No Hematochezia, No Melena Genitourinary: No irregular bleeding, No Dysuria, No Urinary Frequency, No Hematuria, No Urinary Incontinence/retention, No Urgency, No Flank Pain, No Urinary Flow Changes, No Hesitancy Musculoskeletal:+ joint pain, No Myalgias, No Joint Swelling Skin: No Skin Lesions, No rash Neuro: No Weakness, No Numbness, No Paresthesias, No Loss of Consciousness, No Dizziness, No Headache Psych: No Anxiety/Panic, No Depression, No SI/HI/AH/VH, No Social Issues, Heme/Lymph: No Bruising, No Bleeding,No Lymphadenopathy Endocrine: No Polyuria, No Polydipsia, No Temperature Intolerance Yes all other systems are reviewed and are negative Constitutional: Constitutional: Reports as per [facility] Past Medical History Medical History No known health problems Social History Social History Advance Directives: No Advance Directives Information Provided: Yes Physical Exam 2 Vital Signs: Vital Signs: Last Vital Signs Temp 98.1 F 09/21/24 11:46 Pulse 68 09/21/24 11:46 Resp 18 09/21/24 11:46 BP 127/76 09/21/24 11:46 Pulse Ox 98 09/21/24 11:46 O2 Del Method Room Air 09/21/24 11:46 BMI result Body Mass Index 35.6 Const: Other: General: Awake, alert, and oriented X3. No acute distress. HEENT: Normal inspection CVS: Normal heart rate and rhythm. Pulses normal. Respiratory: No respiratory distress Skin: Warm, dry, no rashes noted to exposed skin. Normal skin color. Normal skin turgor. Extremities: Left Thumb: Exquisite tenderness throughout the thumb. Able to flex at the IP and MCP, Although decreased. Strong radial pulse. Mild erythema and warmth noted, no drainage. She also has a wounds noted at the base of the nail bed, no active drainage noted. No profound surrounding erythema or warmth. See photo below Neuro: Oriented X 3. No motor deficit. No sensory deficit. throughout the distal phalanx, IP, and proximal phalanx. Medications Administered Discontinued Medications Generic Name Dose Route Start Last Admin Trade Name Freq PRN Reason Stop Dose Admin Diphtheria/Tetanus/Acell Pertussis 0.5 ml 09/21/24 10:23 09/21/24 11:08 Diphth,Pertus(Acell),Tet Adult 0.5 Ml Syringe IM 09/21/24 10:24 0.5 ml .ONCE ONE Administration Piperacillin Sod/Tazobactam 50 mls @ 100 mls/hr 09/21/24 10:37 09/21/24 11:08 Sod 3.375 gm/ Sodium Chloride IV 09/21/24 11:06 100 mls/hr ONCE ONE Administration Medical Decision Making Medical Decision Making MDM Narrative: This is a 49-year-old female who presents emergency department with concerns for left thumb pain after door slamming thumb. on arrival, blood pressure mildly elevated 151/90, all other vital signs within normal limits. She is speaking full sentences under no acute distress. Patient has diffuse tenderness throughout the thumb, with no specific point tenderness, mild erythema and warmth, able to flex and extend at the IP and the MCP. Differential diagnoses include contusion, fracture, sprain, strain. will obtain x-ray to rule out bony involvement. Course: X-ray shows tiny ossific density adjacent to the IP joint of the thumb, which could represent a fracture. Given patient has had increased warmth, swelling, and wound, we will consult with orthopedics given concern for possible open fracture. 10:35AM - Discussed case with orthopedic PA, Tony Leavitt, who recommends giving 1 time dose of IV antibiotics and discharged on oral antibiotic, with instructions of hot saltwater soaks at least 2-3 times per day with early follow-up next week. Given that it is already draining, no need to I&D. Also reporting no needed for splint. Recommending Augmentin for oral medication. 11:52AM - Patient currently getting IV antibiotic. Labs returned, she has no leukocytosis, H&H stable, slight elevation CRP at 0.69. Discussed findings with patient. Instructed with all orthopedic instructions. She understands agrees with plan. Patient stable for discharge. Differential Diagnosis Differential Diagnoses: The differential diagnosis associated with the presentation includes See above Lab Data 09/21/24 10:49 09/21/24 10:49 Labs: Lab Results 09/21/24 Range/Units 10:49 WBC 8.3 (4.8-10.8) X10*3/uL RBC 4.51 (4.20-5.50) X10*6/uL Hgb 12.5 (12.0-16.0) g/dl Hct 38.4 (37.0-47.0) % MCV 85.1 (80.0-98.0) fL MCH 27.7 (27.0-33.0) pg MCHC 32.6 (31.0-35.0) g/dl RDW 14.6 (11.0-16.0) % Plt Count 416 H (160-400) X10*3/uL MPV 10.1 (9.4-12.3) fL Immature Gran % (Auto) 0.4 (0.0-0.4) % Neut % (Auto) 64.2 (45-73) % Lymph % (Auto) 26.1 (20-40) % [place] % (Auto) 6.7 (2-11) % Eos % (Auto) 2.4 (0-4) % Baso % (Auto) 0.2 (0-2) % Lymph # (Auto) 2.2 (1.2-4.9) X10*3/uL [place] # (Auto) 0.6 (0.1-1.2) X10*3/uL Eos # (Auto) 0.2 (0.0-0.4) X10*3/uL Baso # (Auto) 0.0 (0.0-0.2) X10*3/uL Abs Immat Gran (auto) 0.03 (0.00-0.03) X10*3/uL Absolute Neuts (auto) 5.3 (2.0-8.3) x10*3/uL Absolute Nucleated RBC 0.000 (0.0-0.012) X10*3/uL Nucleated RBC % (auto) 0.0 (0.0-0.2) /100WBC ESR 14 (0-20) MM/HR Sodium 140 (135-145) mmol/L Potassium 4.0 (3.3-5.1) mmol/L Chloride 107 (96-108) mmol/L Carbon Dioxide 25 (22-29) mmol/L Anion Gap 12 (12-20) BUN 12 (9-16) mg/dL Creatinine 0.65 (0.5-1.4) mg/dL Estim Creat Clear Calc 106.8 Estimated GFR > 60 Random Glucose 92 (60-115) mg/dL Calcium 9.7 (8.4-10.2) mg/dL Total Bilirubin 0.3 (0.0-1.0) mg/dL AST 29 (5-31) U/L ALT 41 H (0-31) U/L Alkaline Phosphatase 94 (39-117) U/L C-Reactive Protein 0.69 H (< or = 0.50) mg/dL Total Protein 7.5 (6.5-8.0) g/dL Albumin 4.2 (3.5-5.0) g/dL Radiology Impression Discussion of test interpretation with radiology: I have reviewed the radiologist's reading. Radiologist Impression: FINDINGS: Three views of the left hand are submitted. Osseous mineralization is normal. Tiny osseous density seen adjacent to the interphalangeal joint of the thumb which could represent a fracture fragment, of indeterminate age. The bones are otherwise intact. The joint spaces are preserved. The soft tissues are unremarkable. XR/XR hand LT 2V IMPRESSION: Tiny osseous density adjacent to the interphalangeal joint of the thumb which could represent a fracture fragment of indeterminate age. Clinical correlation is recommended. Electronically signed by: Drake Faulkner MD 09/21/2024 09:35 AM EDT Discharge Plan Discharge Clinical Impression: Fracture of thumb Patient Disposition: Home, Self-Care Instructions: Finger Fracture (ED), Thumb Fracture (ED) Additional Instructions: You were seen in the emergency department after injuring your left thumb. Your x-ray shows a tiny osseous density, which could represent a fracture. Given that you have pain, we are treating this as a fracture. There is also a wound which is concerning. For pain, you may take ibuprofen and or Tylenol [id number]. Per the orthopedic team, we do not need to place a splint on your thumb. Please perform hot saltwater soaks at least 2-3 times per day and you need to follow-up with orthopedics early next week. Call today to make an appointment. Take Augmentin as prescribed, this is twice a day. Finish the entire course even if your symptoms improve. If any new or worsening symptoms occur including but not limited to worsening pain, fevers, chills, drainage, please seek emergent care. Prescriptions: New amoxicillin-pot clavulanate 875-125 mg tablet 1 tab PO BID 7 Days Qty: 14 0RF No Action amoxicillin-pot clavulanate 875-125 mg tablet 1 tab PO BID 10 Days Qty: 20 0RF prednisone 20 mg tablet 40 mg PO DAILY 5 Days Qty: 10 0RF fluticasone propionate [Flonase Allergy Relief] 50 mcg/actuation spray,suspension 2 spray intranasal DAILY Qty: 16 0RF Rx Instructions: administer into each nostril cetirizine 10 mg tablet 10 mg PO DAILY PRN (Reason: allergy symptoms) Qty: 30 0RF levofloxacin 500 mg tablet 500 mg PO DAILY 5 Days Qty: 5 0RF Referrals: [facility] [place] Orthopedic Surgeons [Provider Group] Print Language: Malay
[2024-09-21 10:58] LABS: MANUAL DIFF FLAG NO
[2024-09-21 11:01] LABS: Basophils Percent Auto 0.2 % (0-2); Eosinophils Absolute Auto 0.2 X10*3/uL (0.0-0.4); Eosinophils Percent Auto 2.4 % (0-4); Hematocrit 38.4 % (37.0-47.0); Hemoglobin 12.5 g/dl (12.0-16.0); Imm Gran Abs Auto 0.03 X10*3/uL (0.00-0.03); Imm Gran Pct Auto 0.4 % (0.0-0.4); Lymphocytes Absolute Auto 2.2 X10*3/uL (1.2-4.9); Lymphocytes Percent Auto 26.1 % (20-40); Mean Corpuscular HGB Conc 32.6 g/dl (31.0-35.0); Mean Corpuscular Hemoglobin 27.7 pg (27.0-33.0); Mean Corpuscular Volume 85.1 fL (80.0-98.0); Mean Platelet Volume 10.1 fL (9.4-12.3); Monocytes Absolute Auto 0.6 X10*3/uL (0.1-1.2); Monocytes Percent Auto 6.7 % (2-11); Neutrophils Absolute Auto 5.3 x10*3/uL (2.0-8.3); Neutrophils Percent Auto 64.2 % (45-73); Platelet Count 416 X10*3/uL (160-400); Red Blood Count 4.51 X10*6/uL (4.20-5.50); Red Cell Distribution Width 14.6 % (11.0-16.0); White Blood Count 8.3 X10*3/uL (4.8-10.8)
[2024-09-21] MEDS: Piperacillin Sodium/Tazobactam 3.375 GM in 0.9 % Sodium Chloride 50 ML IV (11:08)
[2024-09-21] MEDS: Diphth,Pertus(ACell),Tet Adult 0.5 ML SYRINGE IM (11:08)
[2024-09-21 11:17] LABS: Alanine Aminotransferase 41 U/L (0-31); Albumin Level 4.2 g/dL (3.5-5.0); Alkaline Phosphatase 94 U/L (39-117); Anion Gap 12 (12-20); Aspartate Amino Transferase 29 U/L (5-31); Bilirubin Total 0.3 mg/dL (0.0-1.0); Blood Urea Nitrogen 12 mg/dL (9-16); C Reactive Protein 0.69 mg/dL (< or = 0.50); Calcium 9.7 mg/dL (8.4-10.2); Carbon Dioxide 25 mmol/L (22-29); Chloride 107 mmol/L (96-108); Creatinine Clr Calc Pharmacy 106.8; Estimated Glomerular Filt Rate > 60; Glucose Random 92 mg/dL (60-115); Sodium 140 mmol/L (135-145); Total Protein 7.5 g/dL (6.5-8.0)
[2024-09-21 11:43] LABS: Erythrocyte Sedimentation Rate 14 MM/HR (0-20)
[2024-09-21 11:46] VITALS: BP 127/76; PULSE 68; RESP 18; TEMP 36.7; O2SAT 98
[2024-09-21 12:05] VITALS: BP 135/84; PULSE 75; RESP 16; TEMP 36.6; O2SAT 99
== END 2024-09-21 12:05 | disposition home or self-care (01) ==
PROVIDERS: Physician Assistant Medical; Emergency Provider Emergency Medicine Emergency Medical Services; PCP Internal Medicine
DX: M79.645 Pain in left finger(s) (principal); S62.502A Fracture of unspecified phalanx of left thumb, initial encounter for closed fracture; W23.0XXA Caught, crushed, jammed, or pinched between moving objects, initial encounter; Y93.89 Activity, other specified; Y92.9 Unspecified place or not applicable; Y99.9 Unspecified external cause status; Z23 Encounter for immunization
CPT/HCPCS: 36415; 73120; 80053; 85025; 85652; 86140; 90471; 90715; 96365; 99284; J2543

== ENCOUNTER → 2024-09-21 09:20 | Outpatient (BNV) | payer OTHER, SELFPAY | PROVIDERS: Emergency Provider Emergency Medicine Emergency Medical Services; PCP Internal Medicine; Visit Provider Radiology Diagnostic Radiology | DX: R22.32 Localized swelling, mass and lump, left upper limb (principal) | CPT/HCPCS: 73120 ==

== ENCOUNTER 2024-09-26 12:26 | Outpatient (AMB) | payer OTHER, SELFPAY ==
--- NOTE | 2024-09-26 12:53 | A.OFFVIS_ITS ---
Vital Signs 09/26/24 12:56 Height 5 ft 2 in Weight 194 lb BMI 35.5 Intake Visit Reasons: ER/FC-Fracture of the left thumb-DOI 09/11/24? Intake Note: Glenys 49 yr old right hand dominant female presents today for a fracture care visit [facility] [place] ED. States on 09/11/24 her left thumb was pinched in between a house door. States that the area bled for several minutes. She has had ongoing pain however states that over the last several days she has had increased pain and swelling. She is currently experiencing numbness, tingling and radiating pain to her shoulder. She is not able to bend thumb at IP joint. Allergies No Known Allergies Allergy (Verified 09/26/24 12:55) HPI HPI ER/FC-Fracture of the left thumb-DOI 09/11/24?: Details: Glenys is a 49 year old right hand dominant woman who presents for left thumb pain. She closed her thumb in a door on ~09/14/24. She says she had bleeding & pain immediately. She was seen in the ED on 09/21/24 due to increased pain & swelling. She was given IV Abx, PO Abx, and discharged. She complains of pain, numbness, and tingling in her thumb. She says she cannot bend her thumb at the IP joint. 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 Review of Systems Const All systems reviewed & are unremarkable except as noted in HPI and below Physical Exam Vital Signs: BMI result Body Mass Index 35.5 Const General: cooperative, healthy appearing and no acute distress Orientation/consciousness: patient oriented x3 HEENT Head: Yes normocephalic and Yes atraumatic Eyes EOM: EOMs intact bilaterally Resp Effort & Inspection: normal respiratory effort and able to speak in complete sentences Cardio Jugular venous distension: no JVD Skin General skin exam: turgor normal Rashes: no rashes Neuro General: patient oriented x3 Extrem Other: Evaluation of Left Upper Extremity: The patient is alert, oriented, and in no acute distress Neuro: Median, Ulnar, Radial nerves motor and sensory intact and sensation is normal to the tips of all digits, except for some diminished sensation to the pad of the thumb. Vascular: Cap refill brisk ROM: With encouragement she can bring her fingers closed to a fist and back into extension She can actively flex & extend the thumb IP joint, thought not fully MCP joint stable on exam Skin: No drainage or bleeding seen Hypersensitivity to light touch over the thumb distal to the MCP joint General: Resolving swelling & ecchymosis about the thumb No erythema She has an irregularity at the base of her thumb nail She has some ridges in her thumb nail suggesting she may chronically dig into her nail at the eponychial area Radiographs: 3 views of the left hand from 09/21/24 were reviewed by me today in clinic. They show a few small bony fragments off of the dorsal radial base of the distal phalanx Psych Appearance: grossly normal Affect: normal affect Attitude: cooperative Office Procedures AMB Fracture Care Details: Fracture care [id number] Fracture Billing Code: Fracture Billing Code Assessment & Plan Assessment & Plan (1) Open fracture of distal phalanx of right thumb: Code(s): S62.521B - Displaced fracture of distal phalanx of right thumb, initial encounter for open fracture Category: Medical (2) Hyperesthesia: Code(s): R20.3 - Hyperesthesia Category: Medical Plan Assessment & Plan: 1. Left thumb distal phalanx base fracture, open From a crush injury, DOI: ~09/14/24 I educated her about this condition I discussed treatment options, no surgical intervention warranted I recommend activity modification & bracing, and she is in agreement She was fitted for a thumb splint, allowing for MCP joint motion, to be worn with daily activities out fo the house. She should remove this when at home I explained the signs and symptoms of infection I discussed activity modifications, she is to lift nothing heavier than a cellphone for the next 2 weeks She should touch the skin about her thumb to improve her hypersensitivity She should work on ROM exercises at home, out of her splint. 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 She was given a note for work to continue on light duty, with a 2lb weight limit, for the next 3 weeks. She will follow up 3 weeks, no X-rays unless she has a new injury. Consider OT referral if she continues to have hypersensitivity or pain with limited ROM 2. Right thumb nail deformity chronic vs [id number] 3. Right thumb hypersensitivity Scribed for Doris Bean MD by Maulik Cintron medical imaging technologist, on 09/26/24 at 1:10 PM, EST. Medications: Discontinued amoxicillin-pot clavulanate 875-125 mg Discontinued Reason: Patient Completed Course 1 tab PO BID 10 days 20 tabs 0RF prednisone Discontinued Reason: Patient Completed Course 40 mg (2 x 20 mg) PO DAILY 5 days 10 tabs 0RF amoxicillin-pot clavulanate 875-125 mg Discontinued Reason: Patient Completed Course 1 tab PO BID 7 days 14 tabs 0RF Coding Level of Care Code New Pt Level 3 (53046) Diagnoses Open fracture of distal phalanx of right thumb S62.521B Hyperesthesia R20.3 CPT Codes Fracture Care - Fracture Billing Code: Fracture Billing Code ([id number])
[2024-09-26 12:56] VITALS: BMI 35.5
--- OUTSIDE RECORDS SUMMARY | 2024-09-26 13:33 | XMS_ITS | Clinical Summary ---
Author Organization [employer] Address [address] [facility] 7t [place] [address] Care Team Providers Care Air Brake Worker Name Role Phone Lea Urbina MD Primary Care Provider + Allergies No known active allergies Medications ergocalciferol (Vitamin D-2) 1.25 MG (51885 UT) capsule Take 1 capsule by mouth. [...] pos results Will mail info re Angel dias. FU prn Non-seasonal allergic rhinitis 05/19/2022 Assessment [...] BIW and prn CP/BROWN/FOWLER Non smoking patient. FU with me 6 [...] Encounters Date Type Department Care Team Description 09/22/[address] [facility] MEDICINE [address] [place], [place] [phone] Ya Galeas RN ER Follow-up 09/21/2024 Orders Only [facility] External Provider, [facility] 09/15/[address] [facility] OPTOMETRY [address] [place], [place] [phone] Fide Green OD from Last 3 Months Immunizations Name Administration Dates Next Due Influenza injectable quadriv alent preservative free 02/02/2023,03/19/2022 Influenza, IIV3, injectable 02/23/2014, 7 Influenza, Split (incl. darian fied surface antigen) 05/19/2012 MMR 05/26/1993 Pfizer Covid-19 Vaccine 12+ 03/20/2021, 1,08/31/2020 TD (adult), 2 Lf tetanus tox oid, [...] series) 1993 Depression Screening 11/20/2023 11/19/2022, 11/20/19 23 SDOH Screening 11/20/2023 11/19/2022 Mammogram 12/11/2023 12/10/2021, [...] Procedure Name Priority Date/Time Associated Diagnosis Comments SED RATE BY MODIFIED WESTERGREN Routine 09/21/2024 10:49 AM EDT C-REACTIVE PROTEIN Routine 09/21/2024 10 :49 AM EDT COMPREHENSIVE METABOLIC PANEL Routine 09/21/2024 10:49 AM EDT CBC WITH AUTO DIFFERENTIAL Routine 09/21/2024 10:49 AM EDT XR HAND 1-2 VIEWS LEFT Routine 09/21/2024 [...] Recently Relevant to Health Maintenance Results * (ABNORMAL) CBC auto differential (09/21/2024 10:49 AM EDT) White Blood Count 8.3 4.8 - 10.8 X10*3/uL [facility] Red Blood Count 4.51 4.20 - 5.50 X10*6/uL [facility] Hemoglobin 12.5 12.0 - 16.0 g/dl [facility] Hematocrit 38.4 37.0 - 47.0 % [facility] Mean Corpuscular Volume 85.1 80.0 - 98.0 fL [facility] Mean Corpuscular Hemoglobin 27.7 27.0 - 33.0 pg [facility] Mean Corpuscular HGB Conc 32.6 31.0 - 35.0 g/dl [facility] Red Cell Distribution Width 14.6 11.0 - 16.0 % [facility] Platelet Count 416(H) 160 - 400 X10*3/uL [facility] Mean Platelet Volume 10.1 9.4 - 12.3 fL [facility] Neutrophils Percent Auto 64.2 45 - 73 % [facility] Imm Gran Pct Auto 0.4 0.0 - 0.4 % [facility] Lymphocytes Percent Auto 26.1 20 - 40 % [facility] Monocytes Percent Auto 6.7 2 - 11 % [facility] Eosinophils Percent Auto 2.4 0 - 4 % [facility] Basophils Percent Auto 0.2 0 - 2 % [facility] NRBC Pct Auto 0.0 0.0 - 0.2 /100WBC [facility] Neutrophils Absolute Auto 5.3 2.0 - 8.3 x10*3/uL [facility] Imm Gran Abs Auto 0.03 0.00 - 0.03 X10*3/uL [facility] Lymphocytes Absolute Auto 2.2 1.2 - 4.9 X10*3/uL [facility] Monocytes Absolute Auto 0.6 0.1 - 1.2 X10*3/uL [facility] Eosinophils Absolute Auto 0.2 0.0 - 0.4 X10*3/uL [facility] Basophils Absolute Auto 0.0 0.0 - 0.2 X10*3/uL [facility] NRBC Abs Auto 0.000 0.0 - 0.012 X10*3/uL [facility] 09/21/2024 10:4 9 AM EDT 09/21/2024 10:56 AM EDT us Generic External Data Provider LAB BLOOD ORDERAB LES Final Result [facility] [address] [place] [phone] * Sed Rate by Modified Oren (09/21/2024 10:49 AM EDT) Erythrocyte Sedimentation Rate 14 0 - 20 MM/HR [facility] Comment:Patients with polycy themia and many hemoglobin abnormalitiesmay have depressed sed rates whereas patients with anemiamay have elevated sed rates. 09/21/2024 10:4 9 AM EDT 09/21/2024 10:56 AM EDT Generic External Data Provider LAB BLOOD ORDERAB LES Final Result Performing Organization Address City/[facility]/ZIP Co de Phone Number [facility] [address] [place] [phone] * (ABNORMAL) C-reactive Protein (09/21/2024 10:49 AM EDT) Pathologist [facility] C Reactive Protein 0.69(H) < or = 0.50 mg/dL [facility] 09/21/2024 10:4 9 AM EDT 09/21/2024 10:56 AM EDT Generic External Data Provider LAB BLOOD ORDERAB LES Final Result Performing Organization Address [facility] Co de Phone Number [facility] [address] [place] [phone] * (ABNORMAL) Comprehensive Metabolic Panel (09/21/2024 10:49 AM EDT) Pathologist [facility] Sodium 140 135 - 145 mmol/L [facility] Potassium 4.0 3.3 - 5.1 mmol/L [facility] Chloride 107 96 - 108 mmol/L [facility] Carbon Dioxide 25 22 - 29 mmol/L [facility] Anion Gap 12 12 - 20 [facility] Urea Nitrogen (BUN) 12 9 - 16 mg/dL [facility] Creatinine, Serum 0.65 0.5 - 1.4 mg/dL [facility] Creatinine Clr Calc Pharmacy 106.8 [facility] Comment:Provided height and weight: 157.48 cm,88.2 kg.eGFR (calculated from the MDRD study equation) and eCrCl(calculated from the Cockcroft-Gault equation) are based ondifferent parameters and may not yield comparable results.If eCrCl result is absurd, please check patient'sheight/weight. Estimated Glomerular Filt Rate >60 [facility] Comment:Chronic Kidney Disea se: Estimated GFR < 60 mL/min/1.34h4Yitrvp Kidney Disease: Estimated GFR < 15 mL/min/1.73m2 Glucose 92 60 - 115 mg/dL [facility] Calcium 9.7 8.4 - 10.2 mg/dL [facility] Bilirubin, Total 0.3 0.0 - 1.0 mg/dL [facility] Aspartate Amino Transferase 29 5 - 31 U/L [facility] Alanine Aminotransferase 41(H) 0 - 31 U/L [facility] Total Protein 7.5 6.5 - 8.0 g/dL [facility] Albumin Level 4.2 3.5 - 5.0 g/dL [facility] Alkaline Phosphatase 94 39 - 117 U/L [facility] 09/21/2024 10:4 9 AM EDT 09/21/2024 10:56 AM EDT us Generic External Data Provider LAB BLOOD ORDERAB LES Final Result [facility] [address] [place] [phone] * XR Hand 1-2 Views Left (09/21/2024 9:20 AM EDT) Anatomical Region Laterality Modality Upper Extremities, Hand Left Radiogra phic Imaging 09/21/2024 9:20 AM EDT Narrative 09/21/2024 9:37 AM EDT ? [facility] ?[address] ?[place] [address] ?XRay Report ? Signed ? Patient: Dat,Glenys ?MR#: [id number] ?? 40 ? : 1975 ?Acct:[id number] ? Age/Sex: 49 / F ?ADM Date: 05/08/25 ? Loc: HO.ED ? Attending Dr: ? Ordering Physician: Arturo Salinas MD ?? Date of Service: 09/21/24 ?? Procedure(s): XR hand LT 2V ?? Accession Number(s): [id number] ? cc: Lea Urbina MD; Arturo Salinas [...] MD in OV> ?09/21/24 0935 ? DD/ 0920 ? TD/TT: 09/21/24924 ? Legal Billing Coordinator: ? Procedure Note Dariusz Leroy - 09/21/[address] [address] XRay Report Signed Patient: Glenys DaughertyMR#: [id number] 40 : 1975Acct:[id number] Age/Sex: 49 / FADM Date: 09/21/24 Loc: HO.ED Attending Dr: Ordering Physician: Arturo Salinas MD Date of Service: 09/21/24 Procedure(s): XR hand LT 2V Accession Number(s): [id number] cc: Lea Urbina MD; Arturo Salinas MD [...] Drake Faulkner MD 09/21/2024 09:35 AM EDT RP Dictated By: Drake Faulkner MD Signed By: <Electronically signed by Drake Faulkner MD in OV> 09/21/24934 DD/ 9 TD/TT: 09/21/24924 Legal Billing Coordinator: [facility] External Provider IMG XR PROCEDURES Edited Result - Final * (ABNORMAL) Lipid Panel with Reflex to Direct LDL (01/21/2023 9:15 AM EDT) Triglycerides 121 <150 mg/dL [facility] Comment:Desirable Triglyceri de: less than 150 mg/dLBorderline High Triglyceride 150-199 mg/dLHigh Triglyceride: 200-499 mg/dLVery High Triglyceride: greater than or equal to 5OO mg/dL Cholesterol 185 <200 mg/dL [facility] Comment:Desirable Cholestero l: less than 200 mg/dLBorderline High Cholesterol: 200-239 mg/dLHigh Cholesterol: greater than 239 mg/dL LDL Cholesterol Calculated 107(H) <100 mg/dL [facility] Comment:Desirable LDL: less than 100 mg/dLNear Optimal/Above Optimal LDL: 110- 129 mg/dLBorderline High LDL: 130-159 mg/dLHigh LDL: 160-189 mg/dLVery High LDL: greater than or equal to 190 mg/dL HDL Cholesterol 54 >40 mg/dL [facility] Comment:Desirable HDL: great er than 40 mg/dL Note: This HDL assay may give artificially low results in patients with liver disease. Blood 01/21/2023 9:15 AM EDT 01/21/2023 11:11 AM EDT Lea Urbina MD LAB BLOOD ORDERABLES Fin al Result [facility] [address] [place] [phone] * Mammography Report 1 (12/10/2021 3:05 PM EDT) Anatomical Region Laterality Modality Breast Bilateral Mammography 12/10/2021 3:05 PM EDT Narrative 12/11/2021 8:25 AM EDT Refer to the Notes tab for result details [facility] Procedure: Mammography Report 1 Procedure Note ProviderAdrian MD - 08/09/2022 Refer to the Notes tab for result details [facility] Procedure: Mammography Report 1 Lea Urbina MD IMG BI PROCEDURES Final Result * THINPREP TIS PAP AND HPV mRNA E6/E7, CT/NG, TRICH (10/30/2021 12:00 AM EDT) Chlamydia trachomatis RNA, TMA, Urogenital NOT DETECTED NOT DETECTED [facility] Clinical Information: None given [facility] COMMENT SEE COMMENT [facility] Comment: The analytical performance characteristics of this assay, when used to test SurePath(TM) specimens have been determined by [employer]. The modifications have not been cleared or approved by the FDA. This assay has been validated pursuant to the CLIA regulations and is used for clinical purposes. ?? For additional information, please refer to https://education.[employer]/faq/GZV582 (This link is being provided for information/ [...] has been evaluated with computer assisted technology. [facility] Glass Science Engineer: SEE COMMENT [facility] Comment: DCR, CT(ASCP) CT screening location: [address] ??[phone] HPV nRNA E6/E7 Not Detected Not Detected [facility] Comment: Methodology: Field Examiner-Mediated Amplification This assay detects E6/E7 viral messenger RNA (mRNA) from 14 high-risk HPV types (16,18,31,33,35,39,45,51,52,56,58,59,66,68). ? Cervical sources are required for HPV testing. If a vaginal source from a patient who has had a total hysterectomy with removal of cervix was ?? submitted, please contact the testing laboratory for alternative testing options. ?? For additional information, please refer to http://Wheretoget.[employer]/faq/ZYC916l3 (This link if provided for information/ educational [...] of this assay have been determined by [employer]. The modifications have not been cleared or approved by the FDA. This assay has been validated pursuant to the CLIA regulations and is used for clinical purposes. ?? For additional information, please refer to http://Whe[employer]/ faq/Trichomonastma (This link is being provided for information/ educational purposes only.) ?? 10/30/2021 Lea Urbina MD LAB PATHOLOGY ORDERABLES Final Result [facility] [address] * Pap Smear (10/30/2021) Pap smear Performed us Historical Provider HEALTH MAINTENANCE Final Result from Last 3 Months or Most Recently Relevant to Health Maintenance Insurance C3 HSN FULL HSN PARTIAL Care Teams Air Brake Worker Relationship Specialty Start Date End Date Lea Urbina MD [address] [place] [phone] PCP - General Family Medicine 11/30/18
--- OUTSIDE RECORDS SUMMARY | 2024-09-26 13:33 | XMS_ITS | Encounter Summary ---
Author Organization [employer] Address [address] [facility] 7t [place] [address] Care Team Providers Care General Scrap Worker Name Role Phone Lea Urbina MD Primary Care Provider + Reason for Visit * Reason Onset Date Comments Appointment Request 10/01/2022 Encounter Details Date Type Department Care Team ([facility] st Contact Info) Description 10/01/2022 Telephone [facility] MEDICINE [address] [place], [place] [phone] Lea Urbina MD [address] [place], [place] [phone] Appointment Request Social History Tobacco Use Types [...] PCP, states she received a letter recently. Mysql Developer didn't see any notes or letters sent. documented in this encounter Plan of Treatment Not on file documented as of this encounter Visit Diagnoses Not on filedocumented in this encounter Care Teams General Scrap Worker Relationship Specialty Start Date End Date Lea Urbina MD [address] [place] [phone] PCP - General Family Medicine 11/30/18 documented as of this encounter
--- OUTSIDE RECORDS SUMMARY | 2024-09-26 13:33 | XMS_ITS | Encounter Summary ---
Author Organization [employer] Address [address] [facility] [address] [place] [address] Care Team Providers Care Outbound Supervisor Name Role Phone Lea Urbina MD Primary Care Provider + Reason for Visit * Reason Comments Med Refill Encounter Details Date Type Department Care Team (Late st Contact Info) Description 08/22/2023 Refill [facility] MEDICINE [address] [place], [place] [phone] Lea Urbina MD [address] [place], [place] [phone] Elevated blood-pressure reading without diagnosis of hypertension [...] hypertension documented in this encounter Care Teams Outbound Supervisor Relationship Specialty Start Date End Date Lea Urbina MD [address] [place] [phone] PCP - General Family Medicine 11/30/18 documented as of this encounter
--- OUTSIDE RECORDS SUMMARY | 2024-09-26 13:33 | XMS_ITS | Encounter Summary ---
Author Organization [employer] Address [address] [facility] 7t [place] [address] Care Team Providers Care Assistant Professor Of Biochemistry Name Role Phone Lea Urbina MD Primary Care Provider + Encounter Details Date Type Department Care Team (Late st Contact Info) Description 04/06/2022 Orders Only [facility] MEDICINE [address] [place], [place] [phone] Lea Urbina MD [address] [place], [place] [phone] Social History Tobacco Use Types Packs/Day Years [...] (Free Thyroxine) 0.96 0.71 - 1.85 ng/dL [facility] 01/21/2023 9:1 5 AM EDT 01/21/2023 11:11 AM EDT us Lea Urbina MD LAB BLOOD ORDERABLES Fin al Result Performing Organization Address [facility] Co de Phone Number [facility] [address] [place] [phone] * Culture, Urine, Routine (12/10/2022 12:00 AM EDT) Urine specimen obtained by clean catch procedure / Unknown 12/10/2022 12/10/2022 Comment:[facility] Narrative [facility] - 12/12/2022 8:59 AM EDT Urine Culture Report Result Urine Culture 50,000 to 100,000 cfu/ml Urine Culture Mixed bacterial reg characteristic of Urine Culture urogenital contamination. Specimen Source: Urine clean catch us Imelda De Guzman DO LAB MICROBIOLOGY - GENERAL O RDERABLES Final Result Performing Organization Address [facility] Co de Phone Number [facility] [address] [place] [phone] documented in this encounter Visit Diagnoses Not on filedocumented in this encounter Care Teams Assistant Professor Of Biochemistry Relationship Specialty Start Date End Date Lea Urbina MD [address] [place] [phone] PCP - General Family Medicine 11/30/18 documented as of this encounter
--- OUTSIDE RECORDS SUMMARY | 2024-09-26 13:33 | XMS_ITS | Encounter Summary ---
Author Organization [employer] Address [address] [facility] [address]t [place] [address] Care Team Providers Care Knit Goods Press Hand Name Role Phone Lea Urbina MD Primary Care Provider + Encounter Details Date Type Department Care Team (Late st Contact Info) Description 02/16/2023 Abstract [facility] MEDICINE [address] [place], [place] [phone] Lea Urbina MD [address] [place], [place] [phone] Social History Tobacco Use Types Packs/Day Years [...] on filedocumented in this encounter Care Teams Knit Goods Press Hand Relationship Specialty Start Date End Date Lea Urbina MD [address] [place], [place] [phone] PCP - General Family Medicine 11/30/18 documented as of this encounter
--- OUTSIDE RECORDS SUMMARY | 2024-09-26 13:33 | XMS_ITS | Encounter Summary ---
Author Organization [employer] Address [address] [facility] [address] [place] [address] Care Team Providers Care Sawmill Moulder Operator Name Role Phone Lea Urbina MD Primary Care Provider + Encounter Details Date Type Department Care Team (Late st Contact Info) Description 09/21/2024 Orders Only [facility] External Provider, [facility] Social History Tobacco Use Types Packs/Day [...] as of this encounter Miscellaneous Notes * Result Encounter Note - Lea Urbina MD - 09/21/2024 9:38 AM EDT X-rays of left hand showed a? Bone fragment? On the IP of the thumb. Patient was seen at the ED today, ED notes are to follow. Please obtain ED notes sometime this weekand make sure the patient has adequate follow-up either by hand surgeon or OT. I had seen her 2 months ago for hand symptoms, unclear if today's complaints are similar to the ones at last appointmentwith me (see last OV note) documented in this encounter Plan of Treatment Not on file documented as of this encounter Procedures Procedure Name Priority Date/Time Associated Diagnosis Comments CBC WITH AUTO DIFFERENTIAL Routine 09/21/2024 10:49 AM EDT SED RATE BY MODIFIED WESTERGREN Routine 09/21/2024 10:49 AM EDT C-REACTIVE PROTEIN Routine 09/21/2024 10 :49 AM EDT COMPREHENSIVE METABOLIC PANEL Routine 09/21/2024 10:49 AM EDT XR HAND 1-2 VIEWS LEFT Routine 9:20 AM EDT documented in this encounter Results * Sed Rate by Modified Westergren (09/21/2024 10:49 AM EDT) Erythrocyte Sedimentation Rate 14 0 - 20 MM/HR [facility] Comment:Patients with polycy themia and many hemoglobin abnormalitiesmay have depressed sed rates whereas patients with anemiamay have elevated sed rates. 09/21/2024 10:4 9 AM EDT 09/21/2024 10:56 AM EDT us Generic External Data Provider LAB BLOOD ORDERAB LES Final Result Performing Organization Address City/[facility]/ZIP Co de Phone Number [facility] [address] [place] [address] [phone] * (ABNORMAL) C-reactive Protein (09/21/2024 10:49 AM EDT) C Reactive Protein 0.69(H) < or = 0.50 mg/dL [facility] 09/21/2024 10:4 9 AM EDT 09/21/2024 10:56 AM EDT Generic External Data Provider LAB BLOOD ORDERAB LES Final Result Performing Organization Address [facility] Co de Phone Number [facility] [address] [place] [phone] * (ABNORMAL) Comprehensive Metabolic Panel (09/21/2024 10:49 AM EDT) Sodium 140 135 - 145 mmol/L [facility] Potassium 4.0 3.3 - 5.1 mmol/L [facility] Chloride 107 96 - 108 mmol/L [facility] Carbon Dioxide 25 22 - 29 mmol/L [facility] Anion Gap 12 12 - 20 [facility] Urea Nitrogen (BUN) 12 9 - 16 mg/dL [facility] Creatinine, Serum 0.65 0.5 - 1.4 mg/dL [facility] Creatinine Clr Calc Pharmacy 106.8 [facility] Comment:Provided height and weight: 157.48 cm,88.2 kg.eGFR (calculated from the MDRD study equation) and eCrCl(calculated from the Cockcroft-Gault equation) are based ondifferent parameters and may not yield comparable results.If eCrCl result is absurd, please check patient'sheight/weight. Estimated Glomerular Filt Rate >60 [facility] Comment:Chronic Kidney Disea se: Estimated GFR < 60 mL/min/1.64i3Ypxssd Kidney Disease: Estimated GFR < 15 mL/min/1.73m2 Glucose 92 60 - 115 mg/dL [facility] Calcium 9.7 8.4 - 10.2 mg/dL [facility] Bilirubin, Total 0.3 0.0 - 1.0 mg/dL [facility] Aspartate Amino Transferase 29 5 - 31 U/L [facility] Alanine Aminotransferase 41(H) 0 - 31 U/L [facility] Total Protein 7.5 6.5 - 8.0 g/dL [facility] Albumin Level 4.2 3.5 - 5.0 g/dL [facility] Alkaline Phosphatase 94 39 - 117 U/L [facility] 09/21/2024 10:4 9 AM EDT 09/21/2024 10:56 AM EDT us Generic External Data Provider LAB BLOOD ORDERAB LES Final Result [facility] [address] [place] [phone] * (ABNORMAL) CBC auto differential (09/21/2024 10:49 AM EDT) White Blood Count 8.3 4.8 - 10.8 X10*3/uL [facility] Red Blood Count 4.51 4.20 - 5.50 X10*6/uL [facility] Hemoglobin 12.5 12.0 - 16.0 g/dl [facility] Hematocrit 38.4 37.0 - 47.0 % [facility] Mean Corpuscular Volume 85.1 80.0 - 98.0 fL [facility] Mean Corpuscular Hemoglobin 27.7 27.0 - 33.0 pg [facility] Mean Corpuscular HGB Conc 32.6 31.0 - 35.0 g/dl [facility] Red Cell Distribution Width 14.6 11.0 - 16.0 % [facility] Platelet Count 416(H) 160 - 400 X10*3/uL [facility] Mean Platelet Volume 10.1 9.4 - 12.3 fL [facility] Neutrophils Percent Auto 64.2 45 - 73 % [facility] Imm Gran Pct Auto 0.4 0.0 - 0.4 % [facility] Lymphocytes Percent Auto 26.1 20 - 40 % [facility] Monocytes Percent Auto 6.7 2 - 11 % [facility] Eosinophils Percent Auto 2.4 0 - 4 % [facility] Basophils Percent Auto 0.2 0 - 2 % [facility] NRBC Pct Auto 0.0 0.0 - 0.2 /100WBC [facility] Neutrophils Absolute Auto 5.3 2.0 - 8.3 x10*3/uL [facility] Imm Gran Abs Auto 0.03 0.00 - 0.03 X10*3/uL [facility] Lymphocytes Absolute Auto 2.2 1.2 - 4.9 X10*3/uL [facility] Monocytes Absolute Auto 0.6 0.1 - 1.2 X10*3/uL [facility] Eosinophils Absolute Auto 0.2 0.0 - 0.4 X10*3/uL [facility] Basophils Absolute Auto 0.0 0.0 - 0.2 X10*3/uL [facility] NRBC Abs Auto 0.000 0.0 - 0.012 X10*3/uL [facility] 09/21/2024 10:4 9 AM EDT 09/21/2024 10:56 AM EDT us Generic External Data Provider LAB BLOOD ORDERAB LES Final Result [facility] [address] [place] [phone] * XR Hand 1-2 Views Left (09/21/2024 9:20 AM EDT) Anatomical Region Laterality Modality Upper Extremities, Hand Left Radiogra phic Imaging 09/21/2024 9:20 AM EDT Narrative 09/21/2024 9:37 AM EDT ? [facility] ?[address] ?[place] [address] ?XRay Report ? Signed ? Patient: Dat,Glenys ?MR#: [id number] ?? 40 ? : 1975 ?Acct:[id number] ? Age/Sex: 49 / F ?ADM Date: 09/21/24 ? Loc: HO.ED ? Attending Dr: ? Ordering Physician: Arturo Salinas MD ?? Date of Service: 09/21/24 ?? Procedure(s): XR hand LT 2V ?? Accession Number(s): [id number] ? cc: Lea Urbina MD; Arturo Salinas [...] ?09/21/24 0935 ? DD/ 0920 ? TD/TT: 09/21/2425 ? Spring Fitter Helper: ? Procedure Note Dariusz Leroy - 09/21/[address] [address] XRay Report Signed Patient: Malcom Daugherty#: [id number] 40 : 1975Acct:[id number] Age/Sex: 49 / FADM Date: 09/21/24 Loc: HO.ED Attending Dr: Ordering Physician: Arturo Salinas MD Date of Service: 09/21/24 Procedure(s): XR hand LT 2V Accession Number(s): [id number] cc: Lea Urbina MD; Arturo Salinas MD [...] in OV> 09/21/2435 DD/ 9 TD/TT: 09/21/24924 Spring Fitter Helper: [facility] External Provider IMG XR PROCEDURES Edited Result - Final documented in this encounter Visit Diagnoses Not on filedocumented in this encounter Care Teams Sawmill Moulder Operator Relationship Specialty Start Date End Date Lea Urbina MD [address] [place] [phone] PCP - General Family Medicine 11/30/18 documented as of this encounter
--- OUTSIDE RECORDS SUMMARY | 2024-09-26 13:33 | XMS_ITS | Encounter Summary ---
Author Organization [employer] Address [address] [facility] [address] [place] [address] Care Team Providers Care Grain Manager Name Role Phone Lea Urbina MD Primary Care Provider + Encounter Details Date Type Department Care Team (Late st Contact Info) Description 04/07/2022 Abstract [facility] [address] [place] [address] ProviderAdrian MD Social History Tobacco Use Types [...] on filedocumented in this encounter Care Teams Grain Manager Relationship Specialty Start Date End Date Lea Urbina MD [address] [place] [phone] PCP - General Family Medicine 11/30/18 documented as of this encounter
--- OUTSIDE RECORDS SUMMARY | 2024-09-26 13:33 | XMS_ITS | Encounter Summary ---
Author Organization [employer] Address [address] [facility] 7t [place] [address] Care Team Providers Care Lure Maker Name Role Phone Lea Urbina MD Primary Care Provider + Reason for Visit * Reason Onset Date Comments ER Follow-up 09/22/2024 Encounter Details Date Type Department Care Team ([facility] st Contact Info) Description 09/22/2024 Telephone [facility] [address] [place], [place] [phone] Ya Galeas RN [address], [place] [phone] ER Follow-up Social History Tobacco Use Types Packs/Day Years [...] encounter Miscellaneous Notes * Telephone Encounter - Ya Galeas RN - 09/22/2024 10:35 AM EDT [employer] checked, pt. In ED 09/21/24 for L thumb injury (slammed in door) with pain and swelling. Prescribed augmentin bid x 7 days. X-ray showed possible fx. Recommended f/up with ortho specialist. TC placed to pt. For status check. Pt. Reports thumb still hurts at about the same level and confirms she it taking abx. Pt. Reports she already called [facility] ortho this morning as referred and is waiting for a call back for appt. Pt. Will call clinic for any difficulties obtaining appt. Prn Note sent to scan documented in this encounter Plan of Treatment Not on file documented as of this encounter Visit Diagnoses Not on filedocumented in this encounter Care Teams Lure Maker Relationship Specialty Start Date End Date Lea Urbina MD [address] [place] [phone] PCP - General Family Medicine 11/30/18 documented as of this encounter
== END 2024-09-26 13:35 | disposition home or self-care (01) ==
LOC: HO.HOS 12:27
PROVIDERS: PCP Internal Medicine; Visit Provider Orthopaedic Surgery
DX: S62.521B Displaced fracture of distal phalanx of right thumb, initial encounter for open fracture (principal); R20.3 Hyperesthesia
CPT/HCPCS: 99203

== ENCOUNTER → 2024-09-26 12:26 | Outpatient (BNVA) | payer OTHER, SELFPAY | PROVIDERS: PCP Internal Medicine; Visit Provider Orthopaedic Surgery | DX: S62.521B Displaced fracture of distal phalanx of right thumb, initial encounter for open fracture (principal); R20.3 Hyperesthesia | CPT/HCPCS: 99202 ==

== ENCOUNTER 2025-01-22 10:40 | Emergency (ER) | payer SELFPAY ==
--- NOTE | ~2025-01-22 | XR_ITS ---
EXAMINATION: XR LUMBOSACRAL SPINE CLINICAL INFORMATION: pain COMPARISON: None available. TECHNIQUE: Three views of the lumbosacral spine. FINDINGS: There are 5 nonrib-bearing lumbar sequence. L5-S1 demonstrates grade 1 anterolisthesis and suspected pars interarticularis defects. No other abnormality or deformity is evident. 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 Electronically signed by: Anil Traore MD 01/22/2025 11:33 AM EDT
--- NOTE | ~2025-01-22 | CT_ITS ---
EXAMINATION: CT ABDOMEN AND PELVIS WITH CONTRAST CLINICAL INFORMATION: Right lower quadrant abdominal pain. COMPARISON: November 08, 2009. TECHNIQUE: Multidetector volumetric images were obtained from the superior aspect of the liver through the pubic symphysis following administration 85 mL of Omnipaque 350 intravenous contrast. Sagittal and coronal reformatted images were obtained on the technologist's workstation. Oral contrast: No This CT examination was performed using dose optimization techniques as appropriate, variously including the following: *Automated exposure control *Adjustment of mA and/or kV according to patient size (this includes techniques or standardized protocols for targeted exams where dose is matched to indication/reason for exam; i.e. extremities or head) *Use of iterative reconstruction technique DLP: 674 mGy centimeter. FINDINGS: LUNG BASES: No acute airspace disease in the [id number]. LIVER, GALLBLADDER, AND BILIARY TREE: Liver measures 19 cm. There is a 2.6 cm lobulated thin septated hypodense lesion in the periphery of the posterior right hepatic lobe. The main portal veins, hepatic veins are patent. Status post cholecystectomy. No intrahepatic or extrahepatic biliary ductal dilatation. PANCREAS: No focal lesion. No peripancreatic fluid collection. No main pancreatic ductal dilatation. SPLEEN: 8 cm. No mass. ADRENAL GLANDS: No nodular lesions. KIDNEYS AND URETERS: No gross renal mass. No hydronephrosis. Normal enhancement pattern of the renal parenchyma. Renal cortical defect in the anterior midportion/lower pole left kidney. BLADDER: Fluid-filled. GASTROINTESTINAL TRACT: Appendix is normal. No intestinal obstruction pattern. No pneumatosis intestinalis. No pneumoperitoneum. No ascites. No peripheral enhancing fluid collection in the peritoneal cavity. No gross intestinal wall thickening. ABDOMINAL WALL: Small fat-containing umbilical hernia with diastases abdominal rectus muscles in the periumbilical region. LYMPH NODES: No specific prominent, mesenteric, retroperitoneal and inguinal. VASCULAR: No aneurysm or dissection, abdominal aorta. No gross calcified plaques. PELVIC VISCERA: Heterogeneous nodular enhancing uterus with multifocal, hypodense lesions, the largest measures 5 cm with low density no calcification. The ovaries are normal. OSSEOUS STRUCTURES: Spondylosis L5-S1 resulting in grade 1 anterolisthesis. Multilevel lower thoracic spondylosis. CT/CT abdomen pelvis w IV con IMPRESSION: Leiomyomata uterine, Largest measures 5 cm with likely cystic degeneration. Hepatomegaly. 2.6 cm hypodense lesion right hepatic lobe. Statistically may represent hemangioma. This has been described in the prior CT dated November 08, 2009 although images are not available. Small fat-containing umbilical hernia. Spondylosis L5-S1. Fleischner guidelines were followed. Electronically signed by: Rishabh Estevez MD 01/22/2025 02:24 PM EDT
[2025-01-22 11:05] VITALS: BP 150/80; PULSE 88; RESP 14; TEMP 36.4; O2SAT 94; BMI 36.2
--- NOTE | 2025-01-22 11:07 | ED_ITS ---
HPI - General Adult General Chief complaint: Abdominal Pain Stated complaint: sharp pain lower R back wraps to belly x1 week Time Seen by Provider: 01/22/25 12:25 Source: patient and RN notes reviewed Mode of arrival: ambulatory Limitations: no limitations History of Present Illness ED Provider: Aleyda Salinas PA-C HPI narrative: This is a 49-year-old female who presents emergency department with complaints of right lower abdominal pain for the last week as well as right low back pain. Patient reports that she performs heavy lifting and believes that this may have triggered her to have this pain. Pain improves with standing, worsens with sitting. She denies any fevers, chills, chest pain, shortness for breath, nausea, vomiting, or diarrhea. No urinary symptoms. No numbness, tingling or weakness. No history of kidney stones. No hematuria, urinary frequency or urgency. Denies history of the similar symptoms in the past. She does report no chance of , reports that she was ?operated on?. Denies any other complaints or concerns at this time. MD complaint: Abdominal pain, my low back pain Relieving factors: none Exacerbating factors: none Associated symptoms: denies other symptoms Treatments prior to arrival: none Related Data Previous Rx's ?Medication ?Instructions ?Recorded cetirizine 10 mg tablet 10 mg PO DAILY PRN allergy 0 08/07/21 symptoms #30 tabs fluticasone propionate 50 2 spray intranasal DAILY #16 grams 08/07/21 mcg/actuation nasal spray,suspension (Flonase Allergy Relief) levofloxacin 500 mg tablet 500 mg PO DAILY 5 days #5 t abs 08/07/21 acetaminophen 500 mg tablet 1,000 mg (2 x 500 mg) PO Q 8H PRN 01/22/25 (Tylenol Extra Strength) pain #30 tabs ibuprofen 600 mg tablet 600 mg PO Q6H PRN pain #30 t abs 01/22/25 Allergies Allergy/AdvReac Type Severity Reaction Status Date / Time No Known Allergies Allergy Verified 01/22/25 11:06 Review of Systems 2 Review of Systems: Constitutional : No Fever, No Chills ENT/Mouth : No sore throat, No Rhinorrhea Eyes: No Eye Pain, No Swelling, No Redness Cardiovascular : No Chest Pain, No SOB Respiratory : No Cough, No Sputum Gastrointestinal : No Nausea, No Vomiting, No Diarrhea, No abdominal Pain Genitourinary : No Dysuria, No Hematuria Musculoskeletal : No joint pain, No Myalgias, No Joint Swelling Skin : No Skin Lesions Neuro : No Weakness, No Numbness, No Headache All other systems reviewed and are negative Yes all other systems are reviewed and are negative Constitutional: Constitutional: Reports as per [facility] Past Medical History Attestation statement: The following information was validated with the patient. 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 Physical Exam ED Vital Signs: Vital Signs - 24 hr 01/22/25 11:05 Temperature 97.5 F Pulse Rate 88 Respiratory Rate 14 Blood Pressure 150/80 H Pulse Oximetry 94 Oxygen Delivery Method Room Air BMI result Body Mass Index 36.2 Const General: cooperative, comfortable and no acute distress Orientation/consciousness: patient oriented x3 Limitations: no limitations [facility] Head: Yes normal to inspection, Yes normocephalic and Yes atraumatic Ears: hearing grossly normal bilaterally General nose exam: Normal external nose present Face and sinus: Yes normal facial exam Mouth: Normal oral and palatal mucosa present, oropharynx normal and moist mucous membranes Throat: Yes posterior oropharynx normal Eyes General: appearance normal, both eyes and all related structures Eyelids: Yes eyelids normal Conjunctivae: conjunctivae normal Sclerae: sclerae normal Pupils: Equal, round and reactive pupils present EOM: EOMs intact bilaterally Neck Neck: Yes normal visual inspection, Yes full ROM and Yes no lymphadenopathy Lymphatic: no lymphadenopathy noted Chest Chest palpation & inspection: normal inspection of the chest Resp Effort & Inspection: normal respiratory effort and able to speak in complete sentences Auscultation: clear to auscultation bilaterally, no crackles, no rales, no rhonchi and no wheezes Cardio Rate: regular rate Rhythm: regular rhythm Heart sounds: S1 normal heart sound present and S2 normal heart sound present GI Other: Abdomen is soft, with tenderness palpation in the right lower quadrant, no rebound or guarding. Inspection: Yes normal to inspection Back/Spine/Pelvis Other: Tenderness palpation along the right low musculature. Skin General skin exam: no rashes or lesions noted Trauma: no lacerations or abrasions Wounds: no wounds Neuro General: patient oriented x3 and moves all extremities Cranial nerves: Yes Equal, round and reactive pupils present Extrem General: Yes normal to inspection Right upper extremity: normal to inspection Left upper extremity: normal to inspection Right lower extremity: normal to inspection Left lower extremity: normal to inspection Course Course Course Narrative: Rapid medical examination performed in triage by Camilla Reynoso PA-C. Patient is a 49 year old assigned female at presenting to the emergency department with back pain. Detailed physical exam and review of systems are deferred to the electrical line mechanic. UA and XR ordered. Patient placed back in the waiting room pending room availability and results. Medications Administered Discontinued Medications Generic Name Dose Route Start Last Admin Trade Name Freq PRN Reason Stop Dose Admin Iohexol 100 ml 01/22/25 13:54 01/22/25 13:55 Iohexol 350 Mg/Ml 100 Ml Infus..Btl IV 01/22/25 13:55 85 ml ONCE ONE Administration Medical Decision Making Medical Decision Making [facility] Narrative: This is a 49-year-old female who presents emergency department for evaluation of right lower abdominal pain for the last week. Patient denies any known trauma or injury. On arrival, vital signs within normal limits. She is speaking full sentences under no acute distress. No urinary symptoms. Patient with tenderness palpation in the right lower quadrant, no rebound or guarding. Patient also reporting pain extending into the right low back. Differential diagnoses include renal colic, UTI, pyelonephritis, appendicitis, SBO-unlikely. Offered pain medication, she declines at this time. 2:37 PM 01/22/2025 (Aleyda Salinas PA-C): Labs returned, she has no leukocytosis, stable H&H, chemistry revealing no significant electrolyte derangement. Urine does not appear to be infectious. 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 Advised to follow-up with her PCP in regards to incidental findings of uterine fibroids, enlarged liver with lesion, and degenerative changes. She understands and agrees with plan. Patient stable for discharge. Differential Diagnosis Differential Diagnoses: The differential diagnosis associated with the presentation includes Admission/Observation Consideration of admission/observation: Escalation of care including admission/observation considered Lab Data [facility] Lab Attestation statement: I reviewed the patient's lab results. See MDM 01/22/25 12:59 01/22/25 12:59 Labs: Lab Results 01/22/25 01/22/25 Range/Units 12:48 12:59 WBC 8.3 (4.8-10.8) X10*3/uL RBC 4.57 (4.20-5.50) X10*6/uL Hgb 13.0 (12.0-16.0) g/dl Hct 41.1 (37.0-47.0) % MCV 89.9 (80.0-98.0) fL MCH 28.4 (27.0-33.0) pg MCHC 31.6 (31.0-35.0) g/dl RDW 13.4 (11.0-16.0) % Plt Count 371 (160-400) X10*3/uL MPV 10.5 (9.4-12.3) fL Immature Gran % (Auto) 0.6 H (0.0-0.4) % Neut % (Auto) 59.8 (45-73) % Lymph % (Auto) 29.4 (20-40) % [place] % (Auto) 7.1 (2-11) % Eos % (Auto) 2.6 (0-4) % Baso % (Auto) 0.5 (0-2) % Lymph # (Auto) 2.4 (1.2-4.9) X10*3/uL [place] # (Auto) 0.6 (0.1-1.2) X10*3/uL Eos # (Auto) 0.2 (0.0-0.4) X10*3/uL Baso # (Auto) 0.0 (0.0-0.2) X10*3/uL Abs Immat Gran (auto) 0.05 H (0.00-0.03) X10*3/uL Absolute Neuts (auto) 5.0 (2.0-8.3) x10*3/uL Absolute Nucleated RBC 0.000 (0.0-0.012) X10*3/uL Nucleated RBC % (auto) 0.0 (0.0-0.2) /100WBC Sodium 143 (135-145) mmol/L Potassium 3.6 (3.3-5.1) mmol/L Chloride 108 (96-108) mmol/L Carbon Dioxide 26 (22-29) mmol/L Anion Gap 13 (12-20) BUN 12 (9-16) mg/dL Creatinine 0.81 (0.5-1.4) mg/dL Estim Creat Clear Calc 86.5 Estimated GFR > 60 Random Glucose 90 (60-115) mg/dL Calcium 8.9 D (8.4-10.2) mg/dL Magnesium 1.8 (1.6-2.6) mg/dL Total Bilirubin 0.2 (0.0-1.0) mg/dL Direct Bilirubin < 0.2 (0.0-0.5) mg/dL AST 25 (5-31) U/L ALT 40 H (0-31) U/L Alkaline Phosphatase 97 (39-117) U/L Total Protein 7.3 (6.5-8.0) g/dL Albumin 4.2 (3.5-5.0) g/dL Lipase 70 (8-78) U/L Urine Color Yellow Urine Appearance Turbid Urine pH 8.5 (5.0-9.0) Ur Specific [place] 1.020 (1.005-1.025) Urine Protein Negative (Neg-Trace) mg/dL Urine Glucose (UA) Negative (Negative) mg/dL Urine Ketones Negative (Negative) mg/dL Urine Blood Negative (Negative) Urine Nitrite Negative (Negative) Ur Leukocyte Esterase Negative (Negative) Radiology Impression Discussion of test interpretation with radiology: I have reviewed the radiologist's reading. Radiologist Impression: FINDINGS: LUNG BASES: No acute airspace disease in the [id number]. LIVER, GALLBLADDER, AND BILIARY TREE: Liver measures 19 cm. There is a 2.6 cm lobulated thin septated hypodense lesion in the periphery of the posterior right hepatic lobe. The main portal veins, hepatic veins are patent. Status post cholecystectomy. No intrahepatic or extrahepatic biliary ductal dilatation. PANCREAS: No focal lesion. No peripancreatic fluid collection. No main pancreatic ductal dilatation. SPLEEN: 8 cm. No mass. ADRENAL GLANDS: No nodular lesions. KIDNEYS AND URETERS: No gross renal mass. No hydronephrosis. Normal enhancement pattern of the renal parenchyma. Renal cortical defect in the anterior midportion/lower pole left kidney. BLADDER: Fluid-filled. GASTROINTESTINAL TRACT: Appendix is normal. No intestinal obstruction pattern. No pneumatosis intestinalis. No pneumoperitoneum. No ascites. No peripheral enhancing fluid collection in the peritoneal cavity. No gross intestinal wall thickening. ABDOMINAL WALL: Small fat-containing umbilical hernia with diastases abdominal rectus muscles in the periumbilical region. LYMPH NODES: No specific prominent, mesenteric, retroperitoneal and inguinal. VASCULAR: No aneurysm or dissection, abdominal aorta. No gross calcified plaques. PELVIC VISCERA: Heterogeneous nodular enhancing uterus with multifocal, hypodense lesions, the largest measures 5 cm with low density no calcification. The ovaries are normal. OSSEOUS STRUCTURES: Spondylosis L5-S1 resulting in grade 1 anterolisthesis. Multilevel lower thoracic spondylosis. CT/CT abdomen pelvis w IV con IMPRESSION: Leiomyomata uterine, Largest measures 5 cm with likely cystic degeneration. Hepatomegaly. 2.6 cm hypodense lesion right hepatic lobe. Statistically may represent hemangioma. This has been described in the prior CT dated November 08, 2009 although images are not available. Small fat-containing umbilical hernia. Spondylosis L5-S1. Fleischner guidelines were followed. Electronically signed by: Rishabh Estevez MD 01/22/2025 02:24 PM EDT RP Dictated By: Rishabh Murray MD FINDINGS: There are 5 nonrib-bearing lumbar sequence. L5-S1 demonstrates grade 1 anterolisthesis and suspected pars interarticularis defects. No other abnormality or deformity is evident. 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 Electronically signed by: Anil Traore MD 01/22/2025 11:33 AM EDT RP Dictated By: Anil Traore MD External Record Review External record reviewed: Inpatient record, Office record, Outpatient record, Prior outpatient labs, Prior outpatient radiology, Primary care record and Outside ED record Discharge Plan Discharge Clinical Impression: Abdominal pain, Back pain Patient Disposition: Home, Self-Care Instructions: Abdominal Pain (ED), Back Pain (ED) Additional Instructions: You were seen in the emergency department due to back pain/abdominal pain. Your blood work was reassuring. Your urine does not appear to be infected. Your CAT scan does not show a reason for your abdominal pain, however there are some incidental findings that I would like for you to follow-up with your primary care. You have uterine fibroids, please follow-up with your primary care physician regarding this. You have an enlarged liver, with a lesion noted in your liver, this has previously been seen on your CT scan however we are unable to obtain the images from 2010 for comparison. You also have a hernia around your umbilicus. You also have some degenerative changes in your spine which can cause some back pain. Alternate between ibuprofen and or Tylenol as needed for pain and symptoms. Please call your primary care physician regarding this visit. Drink plenty of fluids get plenty of rest. Be mindful when your lifting heavy objects. If any new or worsening symptoms occur including but not limited to worsening back pain, abdominal pain, please return for re-evaluation. CT/CT abdomen pelvis w IV con IMPRESSION: Leiomyomata uterine, Largest measures 5 cm with likely cystic degeneration. Hepatomegaly. 2.6 cm hypodense lesion right hepatic lobe. Statistically may represent hemangioma. This has been described in the prior CT dated November 08, 2009 although images are not available. Small fat-containing umbilical hernia. Spondylosis L5-S1. Fleischner guidelines were followed. Electronically signed by: Rishabh Estevez MD 01/22/2025 02:24 PM EDT RP Dictated By: Rishabh Murray MD Prescriptions: New ibuprofen 600 mg tablet 600 mg PO Q6H PRN (Reason: pain) Qty: 30 0RF acetaminophen [Tylenol Extra Strength] 500 mg tablet 1,000 mg PO Q8H PRN (Reason: pain) Qty: 30 0RF No Action fluticasone propionate [Flonase Allergy Relief] 50 mcg/actuation spray,suspension 2 spray intranasal DAILY Qty: 16 0RF Rx Instructions: administer into each nostril cetirizine 10 mg tablet 10 mg PO DAILY PRN (Reason: allergy symptoms) Qty: 30 0RF levofloxacin 500 mg tablet 500 mg PO DAILY 5 Days Qty: 5 0RF Interventions: ED Discharge Assessment Last Done: 01/22/25 15:51 Discharge Date/Time: 01/22/25 15:52 Print Language: Citizen Of [place]
[2025-01-22 12:55] LABS: Appearance Urine Turbid; Glucose Urine UA Negative (Negative); PH 8.5 (5.0-9.0); Specific Gravity - Urine 1.020 (1.005-1.025)
[2025-01-22 13:06] LABS: MANUAL DIFF FLAG NO
[2025-01-22 13:07] LABS: Hematocrit 41.1 % (37.0-47.0); Hemoglobin 13.0 g/dl (12.0-16.0); Imm Gran Abs Auto 0.05 X10*3/uL (0.00-0.03); Imm Gran Pct Auto 0.6 % (0.0-0.4); Lymphocytes Absolute Auto 2.4 X10*3/uL (1.2-4.9); Mean Corpuscular HGB Conc 31.6 g/dl (31.0-35.0); Mean Corpuscular Hemoglobin 28.4 pg (27.0-33.0); Mean Corpuscular Volume 89.9 fL (80.0-98.0); NRBC Abs Auto 0.000 X10*3/uL (0.0-0.012); NRBC Pct Auto 0.0 /100WBC (0.0-0.2); Platelet Count 371 X10*3/uL (160-400); Red Blood Count 4.57 X10*6/uL (4.20-5.50); White Blood Count 8.3 X10*3/uL (4.8-10.8)
[2025-01-22 13:24] LABS: Alanine Aminotransferase 40 U/L (0-31); Albumin Level 4.2 g/dL (3.5-5.0); Alkaline Phosphatase 97 U/L (39-117); Anion Gap 13 (12-20); Aspartate Amino Transferase 25 U/L (5-31); Blood Urea Nitrogen 12 mg/dL (9-16); Calcium 8.9 mg/dL (8.4-10.2); Carbon Dioxide 26 mmol/L (22-29); Chloride 108 mmol/L (96-108); Creatinine Clr Calc Pharmacy 86.5; Estimated Glomerular Filt Rate > 60; Lipase 70 U/L (8-78); Magnesium 1.8 mg/dL (1.6-2.6); Potassium 3.6 mmol/L (3.3-5.1); Sodium 143 mmol/L (135-145); Total Protein 7.3 g/dL (6.5-8.0)
[2025-01-22] MEDS: iohexoL 350 MG/ML 100 ML INFUS..BTL IV (13:55)
--- OUTSIDE RECORDS SUMMARY | 2025-01-22 14:45 | XMS_ITS | Encounter Summary ---
Author Organization [employer] Address [address] [facility] 7[address] [place] [address] Care Team Providers Care Director Of Instructional Technology Name Role Phone Lea Urbina MD Primary Care Provider + Encounter Details Date Type Department Care Team (Late st Contact Info) Description 01/22/2025 Orders Only [facility] External Provider, [facility] Social History Tobacco Use Types Packs/Day [...] Procedure Name Priority Date/Time Associated Diagnosis Comments CT ABDOMEN PELVIS W CONTRAST Routine 01/22/2025 1:48 PM EDT CBC WITH AUTO DIFFERENTIAL Routine 01/22/2025 12:59 PM EDT MAGNESIUM Routine 01/22/2025 12:59 PM EDT LIPASE Routine 01/22/2025 12:59 PM EDT HEPATIC FUNCTION PANEL Routine 01/22/2025 12:59 PM EDT BASIC METABOLIC PANEL Routine 01/22/2025 12:59 PM EDT URINALYSIS WITH REFLEX MICROSCOPIC Routine 01/22/2025 12:48 PM EDT XR LUMBAR SPINE 2-3 VIEWS Routine 01/22/2025 11:21 AM EDT documented in this encounter Results * CT Abdomen Pelvis w/ Contrast (01/22/2025 1:48 PM EDT) Anatomical Region Laterality Modality Body, Pelvis, Abdomen Computed T omography 01/22/2025 1:48 PM EDT Narrative 01/22/2025 2:27 PM EDT [address] [address] [address] Scan Report Signed Patient: Glenys Daugherty MR#: [id number] 40 : 1975 Acct:[id number] Age/Sex: 49 / F ADM Date: 01/22/25 Loc: HO.ED Attending Dr: Ordering Physician: Aleyda Salinas Date of Service: 01/22/25 Procedure(s): CT abdomen pelvis w IV con Accession Number(s): [id number] cc: Lea Urbina MD; Aleyda Salinas Report Number: [id number]: Total DLP = 674.00 mGy-cm Reason for Exam: RLQ pain, R flank pain EXAMINATION: CT ABDOMEN AND PELVIS WITH CONTRAST CLINICAL INFORMATION: Right lower quadrant abdominal pain. COMPARISON: November 08, 2009. TECHNIQUE: Multidetector volumetric images were obtained from the superior aspect of the liver through the pubic symphysis following administration 85 mL of Omnipaque 350 intravenous contrast. Sagittal and coronal reformatted images were obtained on the technologist's workstation. Oral contrast: No This CT examination was performed using dose optimization techniques as appropriate, variously including the following: *Automated exposure control *Adjustment of mA and/or kV according to patient size (this includes techniques or standardized protocols for targeted exams where dose is matched to indication/reason for exam; i.e. extremities or head) *Use of iterative reconstruction technique DLP: 674 mGy centimeter. FINDINGS: LUNG BASES: No acute airspace disease in the [id number]. LIVER, GALLBLADDER, AND BILIARY TREE: Liver measures 19 cm. There is a 2.6 cm lobulated thin septated hypodense lesion in the periphery of the posterior right hepatic lobe. The main portal veins, hepatic veins are patent. Status post cholecystectomy. No intrahepatic or extrahepatic biliary ductal dilatation. PANCREAS: No focal lesion. No peripancreatic fluid collection. No main pancreatic ductal dilatation. SPLEEN: 8 cm. No mass. ADRENAL GLANDS: No nodular lesions. KIDNEYS AND URETERS: No gross renal mass. No hydronephrosis. Normal enhancement pattern of the renal parenchyma. Renal cortical defect in the anterior midportion/lower pole left kidney. BLADDER: Fluid-filled. GASTROINTESTINAL TRACT: Appendix is normal. No intestinal obstruction pattern. No pneumatosis intestinalis. No pneumoperitoneum. No ascites. No peripheral enhancing fluid collection in the peritoneal cavity. No gross intestinal wall thickening. ABDOMINAL WALL: Small fat-containing umbilical hernia with diastases abdominal rectus muscles in the periumbilical region. LYMPH NODES: No specific prominent, mesenteric, retroperitoneal and inguinal. VASCULAR: No aneurysm or dissection, abdominal aorta. No gross calcified plaques. PELVIC VISCERA: Heterogeneous nodular enhancing uterus with multifocal, hypodense lesions, the largest measures 5 cm with low density no calcification. The ovaries are normal. OSSEOUS STRUCTURES: Spondylosis L5-S1 resulting in grade 1 anterolisthesis. Multilevel lower thoracic spondylosis. CT/CT abdomen pelvis w IV con IMPRESSION: Leiomyomata uterine, Largest measures 5 cm with likely cystic degeneration. Hepatomegaly. 2.6 cm hypodense lesion right hepatic lobe. Statistically may represent hemangioma. This has been described in the prior CT dated November 08, 2009 although images are not available. Small fat-containing umbilical hernia. Spondylosis L5-S1. Fleischner guidelines were followed. Electronically signed by: Rishabh Estevez MD 01/22/2025 02:24 PM EDT RP Dictated By: Rishabh Murray MD Signed By: <Electronically signed by Rishabh Dobson MD in OV> 01/22/25 1424 DD/ 1348 TD/TT: 01/22/25 1413 [employer] Age Program Associate: Procedure Note Donotuseinterpreter, Image - 01/22/[address] [place] [address] [address] Scan Report Signed Patient: Malcom Daugherty#: [id number] 40 : 1975Acct:[id number] Age/Sex: 49 / FADM Date: 01/22/25 Loc: .ED Attending Dr: Ordering Physician: Aleyda Salinas Date of Service: 01/22/25 Procedure(s): CT abdomen pelvis w IV con Accession Number(s): [id number] cc: Lea Urbina MD; Aleyda Salinas Report Number: [id number]: Total DLP = 674.00 mGy-cm Reason for Exam: RLQ pain, R flank pain EXAMINATION: CT ABDOMEN AND PELVIS WITH CONTRAST CLINICAL INFORMATION: Right lower quadrant abdominal pain. COMPARISON: November 08, 2009. TECHNIQUE: Multidetector volumetric images were obtained from the superior aspect of the liver through the pubic symphysis following administration 85 mL of Omnipaque 350 intravenous contrast. Sagittal and coronal reformatted images were obtained on the technologist's workstation. Oral contrast: No This CT examination was performed using dose optimization techniques as appropriate, variously including the following: *Automated exposure control *Adjustment of mA and/or kV according to patient size (this includes techniques or standardized protocols for targeted exams where dose is matched to indication/reason for exam; i.e. extremities or head) *Use of iterative reconstruction technique DLP: 674 mGy centimeter. FINDINGS: LUNG BASES: No acute airspace disease in the [id number]. LIVER, GALLBLADDER, AND BILIARY TREE: Liver measures 19 cm. There is a 2.6 cm lobulated thin septated hypodense lesion in the periphery of the posterior right hepatic lobe. The main portal veins, hepatic veins are patent. Status post cholecystectomy. No intrahepatic or extrahepatic biliary ductal dilatation. PANCREAS: No focal lesion. No peripancreatic fluid collection. No main pancreatic ductal dilatation. SPLEEN: 8 cm. No mass. ADRENAL GLANDS: No nodular lesions. KIDNEYS AND URETERS: No gross renal mass. No hydronephrosis. Normal enhancement pattern of the renal parenchyma. Renal cortical defect in the anterior midportion/lower pole left kidney. BLADDER: Fluid-filled. GASTROINTESTINAL TRACT: Appendix is normal. No intestinal obstruction pattern. No pneumatosis intestinalis. No pneumoperitoneum. No ascites. No peripheral enhancing fluid collection in the peritoneal cavity. No gross intestinal wall thickening. ABDOMINAL WALL: Small fat-containing umbilical hernia with diastases abdominal rectus muscles in the periumbilical region. LYMPH NODES: No specific prominent, mesenteric, retroperitoneal and inguinal. VASCULAR: No aneurysm or dissection, abdominal aorta. No gross calcified plaques. PELVIC VISCERA: Heterogeneous nodular enhancing uterus with multifocal, hypodense lesions, the largest measures 5 cm with low density no calcification. The ovaries are normal. OSSEOUS STRUCTURES: Spondylosis L5-S1 resulting in grade 1 anterolisthesis. Multilevel lower thoracic spondylosis. CT/CT abdomen pelvis w IV con IMPRESSION: Leiomyomata uterine, Largest measures 5 cm with likely cystic degeneration. Hepatomegaly. 2.6 cm hypodense lesion right hepatic lobe. Statistically may represent hemangioma. This has been described in the prior CT dated November 08, 2009 although images are not available. Small fat-containing umbilical hernia. Spondylosis L5-S1. Fleischner guidelines were followed. Electronically signed by: Rishabh Estevez MD 01/22/2025 02:24 PM EDT Dictated By: Rishabh Murray MD Signed By: <Electronically signed by Rishabh Dobson MDin OV> 01/22/25 1424 DD/ 1348 TD/TT: 01/22/25 1413 [employer] Age Program Associate: [facility] External Provider IMG CT PROCEDURES Edited Result - Final * Lipase (01/22/2025 12:59 PM EDT) Lipase 70 8 - 78 U/L [facility] 01/22/2025 12:5 9 PM EDT 01/22/2025 1:04 PM EDT Generic External Data Provider LAB BLOOD ORDERAB LES Final Result Performing Organization Address City/[facility]/ZIP Co de Phone Number [facility] [address] [place] [phone] * Magnesium (01/22/2025 12:59 PM EDT) Pathologist [facility] Magnesium 1.8 1.6 - 2.6 mg/dL [facility] 01/22/2025 12:5 9 PM EDT 01/22/2025 1:04 PM EDT Generic External Data Provider LAB BLOOD ORDERAB LES Final Result Performing Organization Address City/[facility]/ZIP Co de Phone Number [facility] [address] [place] [phone] * Basic Metabolic Panel (01/22/2025 12:59 PM EDT) Sodium 143 135 - 145 mmol/L [facility] Potassium 3.6 3.3 - 5.1 mmol/L [facility] Chloride 108 96 - 108 mmol/L [facility] Carbon Dioxide 26 22 - 29 mmol/L [facility] Anion Gap 13 12 - 20 [facility] Urea Nitrogen (BUN) 12 9 - 16 mg/dL [facility] Creatinine, Serum 0.81 0.5 - 1.4 mg/dL [facility] Creatinine Clr Calc Pharmacy 86.5 [facility] Comment:Provided height and weight: 157.48 cm,89.9 kg.eGFR (calculated from the MDRD study equation) and eCrCl(calculated from the Cockcroft-Gault equation) are based ondifferent parameters and may not yield comparable results.If eCrCl result is absurd, please check patient'sheight/weight. Estimated Glomerular Filt Rate >60 [facility] Comment:Chronic Kidney Disea se: Estimated GFR < 60 mL/min/1.52b7Jonymn Kidney Disease: Estimated GFR < 15 mL/min/1.73m2 Glucose 90 60 - 115 mg/dL [facility] Calcium 8.9 8.4 - 10.2 mg/dL [facility] 01/22/2025 12:5 9 PM EDT 01/22/2025 1:04 PM EDT us Generic External Data Provider LAB BLOOD ORDERAB LES Final Result [facility] [address] [place] [phone] * (ABNORMAL) Hepatic Function Panel (01/22/2025 12:59 PM EDT) Bilirubin, Total 0.2 0.0 - 1.0 mg/dL [facility] Bilirubin, Direct <0.2 0.0 - 0.5 mg/dL [facility] Aspartate Amino Transferase 25 5 - 31 U/L [facility] Alanine Aminotransferase 40(H) 0 - 31 U/L [facility] Total Protein 7.3 6.5 - 8.0 g/dL [facility] Albumin Level 4.2 3.5 - 5.0 g/dL [facility] Alkaline Phosphatase 97 39 - 117 U/L [facility] 01/22/2025 12:5 9 PM EDT 01/22/2025 1:04 PM EDT us Generic External Data Provider LAB BLOOD ORDERAB LES Final Result [facility] [address] [place], [place] [phone] * (ABNORMAL) CBC auto differential (01/22/2025 12:59 PM EDT) White Blood Count 8.3 4.8 - 10.8 X10*3/uL [facility] Red Blood Count 4.57 4.20 - 5.50 X10*6/uL [facility] Hemoglobin 13.0 12.0 - 16.0 g/dl [facility] Hematocrit 41.1 37.0 - 47.0 % [facility] Mean Corpuscular Volume 89.9 80.0 - 98.0 fL [facility] Mean Corpuscular Hemoglobin 28.4 27.0 - 33.0 pg [facility] Mean Corpuscular HGB Conc 31.6 31.0 - 35.0 g/dl [facility] Red Cell Distribution Width 13.4 11.0 - 16.0 % [facility] Platelet Count 371 160 - 400 X10*3/uL [facility] Mean Platelet Volume 10.5 9.4 - 12.3 fL [facility] Neutrophils Percent Auto 59.8 45 - 73 % [facility] Imm Gran Pct Auto 0.6(H) 0.0 - 0.4 % [facility] Lymphocytes Percent Auto 29.4 20 - 40 % [facility] Monocytes Percent Auto 7.1 2 - 11 % [facility] Eosinophils Percent Auto 2.6 0 - 4 % [facility] Basophils Percent Auto 0.5 0 - 2 % [facility] NRBC Pct Auto 0.0 0.0 - 0.2 /100WBC [facility] Neutrophils Absolute Auto 5.0 2.0 - 8.3 x10*3/uL [facility] Imm Gran Abs Auto 0.05(H) 0.00 - 0.03 X10*3/uL [facility] Lymphocytes Absolute Auto 2.4 1.2 - 4.9 X10*3/uL [facility] Monocytes Absolute Auto 0.6 0.1 - 1.2 X10*3/uL [facility] Eosinophils Absolute Auto 0.2 0.0 - 0.4 X10*3/uL [facility] Basophils Absolute Auto 0.0 0.0 - 0.2 X10*3/uL [facility] NRBC Abs Auto 0.000 0.0 - 0.012 X10*3/uL [facility] 01/22/2025 12:5 9 PM EDT 01/22/2025 1:04 PM EDT us Generic External Data Provider LAB BLOOD ORDERAB LES Final Result Performing Organization Address [facility] Co de Phone Number [facility] [address] [place] [phone] * Urinalysis w/reflex microscopic (01/22/2025 12:48 PM EDT) Color Urine Yellow [facility] Appearance Urine Turbid [facility] PH 8.5 5.0 - 9.0 [facility] Glucose Urine UA Negative Negative mg/dL [facility] Urine Blood Negative Negative [facility] Specific [place] - Urine 1.020 1.005 - 1.025 [facility] Urine Protein Negative Neg-Trace mg/dL [facility] Urine Ketones Negative Negative mg/dL [facility] Nitrite Urine Negative Negative [facility] Leukocyte Esterase Urine Negative Negative [facility] 01/22/2025 12:4 8 PM EDT 01/22/2025 12:51 PM EDT Narrative [facility] - 01/22/2025 12:55 PM EDT Urine, Clean Catch us Generic External Data Provider LAB URINE ORDERAB LES Final Result Performing Organization Address [facility]/ZIP Co de Phone Number [facility] [address] [place] [phone] * XR Lumbar Spine 2-3 Views (01/22/2025 11:21 AM EDT) Anatomical Region Laterality Modality Spine, L-spine Radiographic Jennifer ging 01/22/2025 11:2 1 AM EDT Narrative 01/22/2025 11:36 AM EDT [address] [address] XRay Report Signed Patient: Glenys Daugherty MR#: [id number] 40 : 1975 Acct:[id number] Age/Sex: 49 / F ADM Date: 01/22/25 Loc: HO.ED Attending Dr: Ordering Physician: Camilla Reynoso Date of Service: 01/22/25 Procedure(s): XR lumbar spine 2-3V Accession Number(s): [id number] cc: Lea Urbina MD; Camilla Reynoso Reason for Exam: pain EXAMINATION: XR LUMBOSACRAL SPINE CLINICAL INFORMATION: pain COMPARISON: None available. TECHNIQUE: Three views of the lumbosacral spine. FINDINGS: There are 5 nonrib-bearing lumbar sequence. L5-S1 demonstrates grade 1 anterolisthesis and suspected pars interarticularis defects. No other abnormality or deformity is evident. 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 Electronically signed by: Anil Traore MD 01/22/2025 11:33 AM EDT Dictated By: Anil Traore MD Signed By: <Electronically signed by Anil Traore MD in OV> 01/22/25 1133 DD/ 1121 TD/TT: 01/22/25 1120 [employer] Age Program Associate: Procedure Note Donotuseinterpreter, Image - 01/22/[address] [address] XRay Report Signed Patient: Glenys DaughertyMR#: [id number] 40 : 1975Acct:[id number] Age/Sex: 49 / FADM Date: 01/22/25 Loc: HO.ED Attending Dr: Ordering Physician: Camilla Reynoso Date of Service: 01/22/25 Procedure(s): XR lumbar spine 2-3V Accession Number(s): [id number] cc: Lea Urbina MD; Camilla Reynoso Reason for Exam: pain EXAMINATION: XR LUMBOSACRAL SPINE CLINICAL INFORMATION: pain COMPARISON: None available. TECHNIQUE: Three views of the lumbosacral spine. FINDINGS: There are 5 nonrib-bearing lumbar sequence. L5-S1 demonstrates grade 1 anterolisthesis and suspected pars interarticularis defects. No other abnormality or deformity is evident. 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 Electronically signed by: Anil Traore MD 01/22/2025 11:33 AM EDT Dictated By: Anil Traore MD Signed By: <Electronically signed by Anil Traore MD in OV> 01/22/25 1133 DD/ 1121 TD/TT: 01/22/25 1120 School Age Program Associate: [facility] External Provider IMG XR PROCEDURES Edited Result - Final documented in this encounter Visit Diagnoses Not on filedocumented in this encounter Care Teams Director Of Instructional Technology Relationship Specialty Start Date End Date Lea Urbina MD [address] [place] [phone] PCP - General Family Medicine 11/30/18 documented as of this encounter
--- OUTSIDE RECORDS SUMMARY | 2025-01-22 14:45 | XMS_ITS | Encounter Summary ---
Author Organization [employer] Address [address] [facility] [address] [place] [address] Care Team Providers Care Senior Java Software Engineer Name Role Phone Lea Urbina MD Primary Care Provider + Encounter Details Date Type Department Care Team (Late st Contact Info) Description 02/16/2023 Abstract [facility] [address] [place], [place] [phone] Lea Urbina MD [address] [place], [place] [phone] Social History Tobacco Use Types Packs/Day Years [...] on filedocumented in this encounter Care Teams Senior Java Software Engineer Relationship Specialty Start Date End Date Lea Urbina MD [address] [place], [place] [phone] PCP - General Family Medicine 11/30/18 documented as of this encounter
--- OUTSIDE RECORDS SUMMARY | 2025-01-22 14:45 | XMS_ITS | Clinical Summary ---
Author Organization [employer] Address [address] [facility] 7t [place] [address] Care Team Providers Care Tool Rental Technician Name Role Phone Lea Urbina MD Primary Care Provider + Allergies No known active allergies Medications ergocalciferol (Vitamin D-2) 1.25 MG (52045 UT) capsule Take 1 capsule by mouth. [...] IN THE MORNING 48 mL 4 Active predniSONE (Deltasone) 20 MG tabletIndications :Solar dermatitis 2 tabs po daily for 5 days 10 tablet 5 Active Active Problems Problem Noted Date Diagnosed [...] her prn pos results Will mail info jos dias. FU prn Non-seasonal allergic rhinitis 05/19/2022 [...] Encounters Date Type Department Care Team Description 01/22/2025 Orders Only [facility] External Provider, [facility] 12/07/2024 3:40 PM EDT Office Visit [facility] [address] [place] [address] Nita Prince MD Solar dermatitis (Primary Dx) 12/07/2024 Travel from Last 3 Months Immunizations Immunization Administration Dates Next Due Influenza injectable quadriv [...] Sign Reading Time Taken Comments Blood Pressure 143/93 12/07/2024 3:27 PM EDT Pulse 103 12/07/2024 3:27 PM EDT Temperature 36.2 C (97.2 F) 12/07/2024 3:27 PM EDT Respiratory Rate 17 12/07/2024 3:27 PM EDT Oxygen Saturation 99% 12/07/2024 3:27 PM EDT Inhaled Oxygen Concentration - - Weight 89.5 kg (197 lb 6.4 oz) 12/07/2024 3:27 P M EDT Height 157.5 cm (5' 2 ) 12/07/2024 3:27 PM EDT Body Mass Index 36.1 12/07/2024 3:27 PM EDT Plan of Treatment Health Maintenance Due Date Last Done Comments CT Colonography 1974 Colonoscopy 1974 Colorectal Cancer Screening 1974 FIT DNA/Cologuard 1974 FIT 1974 FOBT 1974 HIV Screening 1974 Sigmoidoscopy 1974 Disability Screening 1974 Alcohol/Substance Use Screening 1986 Family Planning (PISQ) 1989 Hepatitis C Screening 02/13/1992 Hepatitis B Vaccines (1 of 3 - 19+ 3-dose series) 1993 Depression Screening 11/20/2023 11/19/2022, 11/20/19 23 SDOH Screening 11/20/2023 11/19/2022 Mammogram 12/11/2023 12/10/2021, 11/15, 11/24/2021, Additional history exists Pneumococcal Vaccine: 50+ Years (1 of 1 - PCV) 02/13/2024 Zoster Vaccines (1 of 2) 02/13/2024 COVID-19 Vaccine (5 - season) 2025 03/19/2022, 03/20/2021, 09/21/2020, Additional history exists Influenza Vaccine (#1) 2025 , 03/19/2022, 02/23/2014, Additional history exists Tobacco Screening 12/07/2025 12/07/2024 Cervical Cancer Screening 10/30/2026 HPV/Cotest 10/30/2026 10/30/2021 Pap Smear 10/30/2026 10/30/2021, 10/30/2021 Lipid Panel 01/22/2028 01/21/2023, 10/30/2021 DTaP/Tdap/Td Vaccines (3 - Td or Tdap) 09/21/2034 09/21/2024, 03/19/2022, 02/14/2007 RSV Patients and Patients Aged [...] patient's age to complete this topic Meningococcal B Vaccine Aged Out No l onger eligible based on patient's age to complete [...] W CONTRAST Routine 01/22/2025 1:48 PM EDT LIPASE Routine 01/22/2025 12:59 PM EDT MAGNESIUM Routine 01/22/2025 12:59 PM EDT BASIC METABOLIC PANEL Routine 01/22/2025 12:59 PM EDT HEPATIC FUNCTION PANEL Routine 01/22/2025 12:59 PM EDT CBC WITH AUTO DIFFERENTIAL Routine 01/22/2025 12:59 PM EDT URINALYSIS WITH REFLEX MICROSCOPIC Routine 01/22/2025 12:48 PM EDT XR LUMBAR SPINE 2-3 VIEWS Routine 01/22/2025 11:21 AM EDT LIPID PANEL WITH REFLEX TO DIRECT LDL Routine 01/21/2023 9:15 AM EDT Elevated blood-pressure reading without diagnosis of hypertension MAMMOGRAM GENERIC Routine 12/10/2021 3:0 5 PM EDT THINPREP IMAGING PAP AND HPV MRNA E6/E7, WITH CT/NG, TRICHOMONAS Routine 10/30/2021 12:00 AM EDT HM PAP/HPV Routine 10/30/2021 from Last 3 Months or Most Recently Relevant to Health Maintenance Results * CT Abdomen Pelvis w/ Contrast (01/22/2025 1:48 PM EDT) Anatomical Region Laterality Modality Body, Pelvis, Abdomen Computed T omography 01/22/2025 1:48 PM EDT Narrative 01/22/2025 2:27 PM EDT [address] [address] [address] Scan Report Signed Patient: Glenys Daugherty MR#: [id number] [birth year] : 1975 Acct:[id number] Age/Sex: 49 / F ADM Date: 01/22/25 Loc: HO.ED Attending Dr: Ordering Physician: Aleyda Salinas Date of Service: 01/22/25 Procedure(s): CT abdomen pelvis w IV con Accession Number(s): [id number] cc: Lea Urbina MD; Aleyda Salinas Report Number: [id number]: Total DLP = 674.00 mGy-cm Reason for [...] BASES: No acute airspace disease in the iimlm-yw-gjrf. LIVER, GALLBLADDER, AND BILIARY TREE: Liver measures [...] 01/22/25 1424 DD/ 1348 TD/TT: 01/22/25 1413 Pediatric Psychiatrist: Procedure Note Donotuseinterpreter, Image - 01/22/[address] [address] [address] Scan Report Signed Patient: Malcom Daugherty#: [id number] 40 : 1975Acct:[id number] Age/Sex: 49 / FADM Date: 01/22/25 Loc: HO.ED Attending Dr: Ordering Physician: Aleyda Salinas Date of Service: 01/22/25 Procedure(s): CT abdomen pelvis w IV con Accession Number(s): [id number] cc: Lea Urbina MD; Aleyda Salinas Report Number: [id number]: Total DLP = 674.00 mGy-cm Reason for [...] BASES: No acute airspace disease in the fulon-dl-gnck. LIVER, GALLBLADDER, AND BILIARY TREE: Liver measures [...] 01/22/25 1424 DD/ 1348 TD/TT: 01/22/25 1413 Pediatric Psychiatrist: [facility] External Provider IMG CT PROCEDURES Edited Result - Final * (ABNORMAL) CBC auto differential (01/22/2025 12:59 PM EDT) White Blood Count 8.3 4.8 - 10.8 X10*3/uL [facility] Red Blood Count 4.57 4.20 - 5.50 X10*6/uL [facility] Hemoglobin 13.0 12.0 - 16.0 g/dl [facility] Hematocrit 41.1 37.0 - 47.0 % [facility] Mean Corpuscular Volume 89.9 80.0 - 98.0 fL [facility] Mean Corpuscular Hemoglobin 28.4 27.0 - 33.0 pg [facility] Mean Corpuscular HGB Conc 31.6 31.0 - 35.0 g/dl [facility] Red Cell Distribution Width 13.4 11.0 - 16.0 % [facility] Platelet Count 371 160 - 400 X10*3/uL [facility] Mean Platelet Volume 10.5 9.4 - 12.3 fL [facility] Neutrophils Percent Auto 59.8 45 - 73 % [facility] Imm Gran Pct Auto 0.6(H) 0.0 - 0.4 % [facility] Lymphocytes Percent Auto 29.4 20 - 40 % [facility] Monocytes Percent Auto 7.1 2 - 11 % [facility] Eosinophils Percent Auto 2.6 0 - 4 % [facility] Basophils Percent Auto 0.5 0 - 2 % [facility] NRBC Pct Auto 0.0 0.0 - 0.2 /100WBC [facility] Neutrophils Absolute Auto 5.0 2.0 - 8.3 x10*3/uL [facility] Imm Gran Abs Auto 0.05(H) 0.00 - 0.03 X10*3/uL [facility] Lymphocytes Absolute Auto 2.4 1.2 - 4.9 X10*3/uL [facility] Monocytes Absolute Auto 0.6 0.1 - 1.2 X10*3/uL [facility] Eosinophils Absolute Auto 0.2 0.0 - 0.4 X10*3/uL [facility] Basophils Absolute Auto 0.0 0.0 - 0.2 X10*3/uL [facility] NRBC Abs Auto 0.000 0.0 - 0.012 X10*3/uL [facility] 01/22/2025 12:5 9 PM EDT 01/22/2025 1:04 PM EDT us Generic External Data Provider LAB BLOOD ORDERAB LES Final Result [facility] [address] [place] [phone] * Magnesium (01/22/2025 12:59 PM EDT) Magnesium 1.8 1.6 - 2.6 mg/dL [facility] 01/22/2025 12:5 9 PM EDT 01/22/2025 1:04 PM EDT us Generic External Data Provider LAB BLOOD ORDERAB LES Final Result Performing Organization Address City/[facility]/ZIP Co de Phone Number [facility] [address] [place] [phone] * Lipase (01/22/2025 12:59 PM EDT) Lipase 70 8 - 78 U/L [facility] 01/22/2025 12:5 9 PM EDT 01/22/2025 1:04 PM EDT us Generic External Data Provider LAB BLOOD ORDERAB LES Final Result Performing Organization Address [facility] Co de Phone Number [facility] [address] [place] [phone] * (ABNORMAL) Hepatic Function Panel (01/22/2025 12:59 PM EDT) Pathologist [facility] Bilirubin, Total 0.2 0.0 - 1.0 mg/dL [facility] Bilirubin, Direct <0.2 0.0 - 0.5 mg/dL [facility] Aspartate Amino Transferase 25 5 - 31 U/L [facility] Alanine Aminotransferase 40(H) 0 - 31 U/L [facility] Total Protein 7.3 6.5 - 8.0 g/dL [facility] Albumin Level 4.2 3.5 - 5.0 g/dL [facility] Alkaline Phosphatase 97 39 - 117 U/L [facility] 01/22/2025 12:5 9 PM EDT 01/22/2025 1:04 PM EDT us Generic External Data Provider LAB BLOOD ORDERAB LES Final Result Performing Organization Address [facility] Co de Phone Number [facility] [address] [place] [phone] * Basic Metabolic Panel (01/22/2025 12:59 PM EDT) Pathologist [facility] Sodium 143 135 - 145 mmol/L [facility] Potassium 3.6 3.3 - 5.1 mmol/L [facility] Chloride 108 96 - 108 mmol/L [facility] Carbon Dioxide 26 22 - 29 mmol/L [facility] Anion Gap 13 12 - 20 [facility] Urea Nitrogen (BUN) 12 9 - 16 mg/dL [facility] Creatinine, Serum 0.81 0.5 - 1.4 mg/dL [facility] Creatinine Clr Calc Pharmacy 86.5 [facility] Comment:Provided height and weight: 157.48 cm,89.9 kg.eGFR (calculated from the MDRD study equation) and eCrCl(calculated from the Cockcroft-Gault equation) are based ondifferent parameters and may not yield comparable results.If eCrCl result is absurd, please check patient'sheight/weight. Estimated Glomerular Filt Rate >60 [facility] Comment:Chronic Kidney Disea se: Estimated GFR < 60 mL/min/1.14g5Zncigo Kidney Disease: Estimated GFR < 15 mL/min/1.73m2 Glucose 90 60 - 115 mg/dL [facility] Calcium 8.9 8.4 - 10.2 mg/dL [facility] 01/22/2025 12:5 9 PM EDT 01/22/2025 1:04 PM EDT us Generic External Data Provider LAB BLOOD ORDERAB LES Final Result [facility] [address] [place] [phone] * Urinalysis w/reflex microscopic (01/22/2025 12:48 PM EDT) Color Urine Yellow [facility] Appearance Urine Turbid [facility] PH 8.5 5.0 - 9.0 [facility] Glucose Urine UA Negative Negative mg/dL [facility] Urine Blood Negative Negative [facility] Specific Fleming - Urine 1.020 1.005 - 1.025 [facility] Urine Protein Negative Neg-Trace mg/dL [facility] Urine Ketones Negative Negative mg/dL [facility] Nitrite Urine Negative Negative [facility] Leukocyte Esterase Urine Negative Negative [facility] 01/22/2025 12:4 8 PM EDT 01/22/2025 12:51 PM EDT Narrative [facility] - 01/22/2025 12:55 PM EDT Urine, Clean Catch us Generic External Data Provider LAB URINE ORDERAB LES Final Result [facility] [address] [place] [phone] * XR Lumbar Spine 2-3 Views (01/22/2025 11:21 AM EDT) Anatomical Region Laterality Modality Spine, L-spine Radiographic Jennifer ging 01/22/2025 11:2 1 AM EDT Narrative 01/22/2025 11:36 AM EDT [address] [address] XRay Report Signed Patient: Glenys Daugherty MR#: [id number] 40 : 1975 Acct:[id number] Age/Sex: 49 / F ADM Date: 01/22/25 Loc: .ED Attending Dr: Ordering Physician: Camilla Reynoso Date of Service: 01/22/25 Procedure(s): XR lumbar spine 2-3V Accession Number(s): [id number] cc: Lea Urbina MD; Camilla Reynoso Reason [...] Anil Traore MD 01/22/2025 11:33 AM EDT RP Dictated By: Anil Traore MD Signed By: <Electronically signed by Anil Traore MD in OV> 01/22/25 1133 DD/ 1121 TD/TT: 01/22/25 1120 Pediatric Psychiatrist: Procedure Note Donotuseinterpreter, Image - 01/22/[address] [address] XRay Report Signed Patient: Malcom Daugherty#: [id number] 40 : 1975Acct:[id number] Age/Sex: 49 / FADM Date: 01/22/25 Loc: HO.ED Attending Dr: Ordering Physician: Camilla Reynoso Date of Service: 01/22/25 Procedure(s): XR lumbar spine 2-3V Accession Number(s): [id number] cc: Lea Urbina MD; Camilla Reynoso Reason [...] Anil Traore MD 01/22/2025 11:33 AM EDT RP Dictated By: Anil Traore MD Signed By: <Electronically signed by Anil Traore MD in OV> 01/22/25 1133 DD/ 1121 TD/TT: 01/22/25 1120 Pediatric Psychiatrist: [facility] External Provider IMG XR PROCEDURES Edited Result - Final * (ABNORMAL) Lipid Panel with Reflex to Direct LDL (01/21/2023 9:15 AM EDT) Triglycerides 121 <150 mg/dL [facility] Comment:Desirable Triglyceri de: less than 150 mg/dLBorderline High Triglyceride 150-199 mg/dLHigh Triglyceride: 200-499 mg/dLVery High Triglyceride: greater than or equal to 5OO mg/dL Cholesterol 185 <200 mg/dL [facility] Comment:Desirable Cholestero l: less than 200 mg/dLBorderline High Cholesterol: 200-239 mg/dLHigh Cholesterol: greater than 239 mg/dL LDL Cholesterol Calculated 107(H) <100 mg/dL [facility] Comment:Desirable LDL: less than 100 mg/dLNear Optimal/Above Optimal LDL: 110- 129 mg/dLBorderline High LDL: 130-159 mg/dLHigh LDL: 160-189 mg/dLVery High LDL: greater than or equal to 190 mg/dL HDL Cholesterol 54 >40 mg/dL [facility] Comment:Desirable HDL: great er than 40 mg/dL Note: This HDL assay may give artificially low results in patients with liver disease. Blood 01/21/2023 9:15 AM EDT 01/21/2023 11:11 AM EDT Lea Urbina MD LAB BLOOD ORDERABLES Fin al Result [facility] [address] [place] [address] [phone] * Mammography Report 1 (12/10/2021 3:05 [...] RNA, TMA, Urogenital NOT DETECTED NOT DETECTED [facility] Clinical Information: None given [facility] COMMENT SEE COMMENT [facility] Comment: The analytical performance characteristics of this assay, when used to test SurePath(TM) specimens have been determined by [employer]. The modifications have not been cleared or approved by the FDA. This assay has been validated pursuant to the CLIA regulations and is used for clinical purposes. For additional information, please refer to https://[employer]/faq/VDN031 (This link is being provided for information/ educational purposes only.) COMMENT SEE COMMENT [facility] Comment: EXPLANATORY NOTE: The Pap is a screening test for cervical cancer. It is not a diagnostic test and is subject to false negative and false positive results. It is most reliable when a satisfactory sample, regularly obtained, is submitted with relevant clinical findings and history, and when the Pap result is evaluated along with historic and current clinical information. COMMENT: This Pap test has been evaluated with computer assisted technology. [facility] Paper Bag Inspector: SEE COMMENT [facility] Comment: DCR, CT(ASCP) CT screening location: [place] [address] HPV nRNA E6/E7 Not Detected Not Detected [facility] Comment: Methodology: Lawnmower Repair Mechanic-Mediated Amplification This assay detects E6/E7 viral messenger RNA (mRNA) from 14 high-risk HPV types (16,18,31,33,35,39,45,51,52,56,58,59,66,68). Cervical sources are required for HPV testing. If a vaginal source from a patient who has had a total hysterectomy with removal of cervix was submitted, please contact the testing laboratory for alternative testing options. For additional information, please refer to http://education.[employer]/faq/EYT271r2 (This link if provided for information/ educational purposes only.) Interpretation/Re sult: Negative for intraepithelial lesion or malignancy. [facility] LMP: NONE GIVEN [facility] Neisseria gonorrhoeae RNA, TMA, Urogenital NOT DETECTED NOT DETECTED [facility] Prev. BX: NONE GIVEN [facility] Prev. PAP: NONE GIVEN [facility] SOURCE: None given [facility] Statement Of Adequacy: SEE COMMENT [facility] Comment: Satisfactory for evaluation. Endocervical/transformation zone component present. Age and/or menstrual status not provided Trichomonas vaginalis, QL, TMA, PAP Vial NOT DETECTED NOT DETECTED [facility] Comment: The analytical performance characteristics of this assay have been determined by [employer]. The modifications have not been cleared or approved by the FDA. This assay has been validated pursuant to the CLIA regulations and is used for clinical purposes. For additional information, please refer to http://education.[employer]/ faq/Trichomonastma (This link is being provided for information/ educational purposes only.) 10/30/2021 Lea Urbina MD LAB PATHOLOGY ORDERABLES Final Result [facility] [address] * Pap Smear (10/30/2021) HM Pap smear Performed Historical Provider HEALTH MAINTENANCE Final Result from Last 3 Months or Most Recently Relevant to Health Maintenance Insurance [facility] 3 Care Teams Tool Rental Technician Relationship Specialty Start Date End Date Lea Urbina MD [address] [place] [phone] PCP - General Family Medicine 11/30/18
--- OUTSIDE RECORDS SUMMARY | 2025-01-22 14:45 | XMS_ITS | Encounter Summary ---
Author Organization [employer] Address [address] [facility] 7t [place] [address] Care Team Providers Care Assembler Insulator Name Role Phone Lea Urbina MD Primary Care Provider + Reason for Visit * Reason Comments Med Refill Encounter Details Date Type Department Care Team (Late st Contact Info) Description 08/22/2023 Refill [facility] [address] [place], [place] [phone] Lea Urbina MD [address] [place], [place] [phone] Elevated blood-pressure reading without diagnosis of hypertension [...] the past 12 months, has t he [employer], gas, oil or water [employer] threatened to shut off services in your [...] hypertension documented in this encounter Care Teams Assembler Insulator Relationship Specialty Start Date End Date Lea Urbina MD [address] [place] [phone] PCP - General Family Medicine 11/30/18 documented as of this encounter
--- OUTSIDE RECORDS SUMMARY | 2025-01-22 14:45 | XMS_ITS | Encounter Summary ---
Author Organization [employer] Address [address] [facility] 7t [place] [address] Care Team Providers Care Flight Engineer Performance Qualified Name Role Phone Lea Urbina MD Primary Care Provider + Encounter Details Date Type Department Care Team (Late st Contact Info) Description 04/06/2022 Orders Only [facility] [address] [place], [place] [phone] Lea Urbina MD [address] [place] [phone] Social History Tobacco Use Types Packs/Day Years [...] (Free Thyroxine) 0.96 0.71 - 1.85 ng/dL [facility] 01/21/2023 9:15 AM EDT 01/21/2023 11:11 AM EDT us Lea Urbina MD LAB BLOOD ORDERABLES Fin al Result Performing Organization Address [facility]/ZIP Co de Phone Number [facility] [address] [place] [phone] * Culture, Urine, Routine (12/10/2022 12:00 AM EDT) Urine specimen obtained by clean catch procedure / Unknown 12/10/2022 12/10/2022 Comment:UACC Narrative [facility] - 12/12/2022 8:59 AM EDT Urine Culture Report Result Urine Culture 50,000 to 100,000 cfu/ml Urine Culture Mixed bacterial reg characteristic of Urine Culture urogenital contamination. Specimen Source: Urine clean catch us Imelda De Guzman DO LAB MICROBIOLOGY - GENERAL O RDERABLES Final Result Performing Organization Address [facility] Co de Phone Number [facility] [address] [place] [phone] documented in this encounter Visit Diagnoses Not on filedocumented in this encounter Care Teams Flight Engineer Performance Qualified Relationship Specialty Start Date End Date Lea Urbina MD [address] [place] [phone] PCP - General Family Medicine 11/30/18 documented as of this encounter
--- OUTSIDE RECORDS SUMMARY | 2025-01-22 14:45 | XMS_ITS | Encounter Summary ---
Author Organization [employer] Address [address] [facility] 7t [place] [address] Care Team Providers Care Enamel Drier Name Role Phone Lea Urbina MD Primary Care Provider + Reason for Visit * Reason Onset Date Comments Appointment Request 10/01/2022 Encounter Details Date Type Department Care Team ([facility] st Contact Info) Description 10/01/2022 Telephone [facility] [address] [place], [place] [phone] Lea Urbina MD [address] [place], [place] [phone] Appointment Request Social History Tobacco Use Types [...] PCP, states she received a letter recently. Rag Willow Operator didn't see any notes or letters sent. documented in this encounter Plan of Treatment Not on file documented as of this encounter Visit Diagnoses Not on filedocumented in this encounter Care Teams Enamel Drier Relationship Specialty Start Date End Date Lea Urbina MD [address] [place] [phone] PCP - General Family Medicine 11/30/18 documented as of this encounter
--- OUTSIDE RECORDS SUMMARY | 2025-01-22 14:45 | XMS_ITS | Encounter Summary ---
Author Organization [employer] Address [address] [facility] 7t [place] [address] Care Team Providers Care Wall Mirror Department Supervisor Name Role Phone Lea Urbina MD Primary Care Provider + Encounter Details Date Type Department Care Team (Late st Contact Info) Description 04/07/2022 Abstract [facility] [address] [place] [address] ProviderAdrian MD Social History Tobacco Use Types [...] in this encounter Results * Mammography (12/09/2021) HM Mammogram Performed Anatomical Region Laterality Modality Other Historical Provider HEALTH MAINTENANCE Final Result * (ABNORMAL) Mammography (11/24/2021) HM Mammogram Performed Anatomical Region Laterality Modality Other Historical Provider HEALTH MAINTENANCE Edited Result - Final * Pap Smear (10/30/2021) Pap smear Performed us Historical Provider HEALTH MAINTENANCE Final Result documented in this encounter Visit Diagnoses Not on filedocumented in this encounter Care Teams Wall Mirror Department Supervisor Relationship Specialty Start Date End Date Lea Urbina MD [address] [place] [phone] PCP - General Family Medicine 11/30/18 documented as of this encounter"
[2025-01-22 15:51] VITALS: BP 143/81; PULSE 83; RESP 18; TEMP 36.9; O2SAT 98
== END 2025-01-22 15:52 | disposition home or self-care (01) ==
PROVIDERS: Physician Assistant Medical; Emergency Provider Emergency Medicine; PCP Internal Medicine
DX: M54.50 Low back pain, unspecified (principal); R10.31 Right lower quadrant pain; D25.9 Leiomyoma of uterus, unspecified
CPT/HCPCS: 36415; 72100; 74177; 80048; 80076; 81003; 83690; 83735; 85025; 99282; 99285; Q9967

== ENCOUNTER → 2025-01-22 11:08 | Outpatient (BNV) | payer OTHER, SELFPAY | PROVIDERS: PCP Internal Medicine; Visit Provider Radiology Diagnostic Radiology | DX: D25.9 Leiomyoma of uterus, unspecified (principal); R16.0 Hepatomegaly, not elsewhere classified; K42.9 Umbilical hernia without obstruction or gangrene; M47.817 Spondylosis without myelopathy or radiculopathy, lumbosacral region; M54.50 Low back pain, unspecified | CPT/HCPCS: 72100; 74177 ==